=== PATIENT | male | born 1975 | race Caucasian/White ===

== ENCOUNTER 2017-12-07 12:48 | Emergency (ER) | payer SELFPAY ==
[~2017-12-07] VITALS: Ht 167.6 cm; Wt 65.8 kg
[~2017-12-07 12:48] MED LIST: CEPH-507 PO; CEPH500C PO; DOXY100C2 PO; HYDR-3729 PO; IBP800T PO; METH4TAB PO; NAPR-243 PO; ONDAN4ODT PO; TRM50T PO
[2017-12-07 13:31] LABS: BASOPHILS # (AUTO) 0.1 10^3/uL (0.0-0.1); BASOPHILS % (AUTO) 1 % (0-10); EOSINOPHILS # (AUTO) 0.5 10^3/uL (0.0-0.3); EOSINOPHILS % (AUTO) 6 % (0-10); HEMATOCRIT 44 % (40-54); LYMPHOCYTES # (AUTO) 2.7 X 10^3 (1.0-4.0); LYMPHOCYTES % (AUTO) 35 % (12-44); MEAN CORPUSCULAR HEMOGLOBIN 32 PG (25-34); MEAN CORPUSCULAR HGB CONC 34 G/DL (32-36); MEAN CORPUSCULAR VOLUME 93 FL (80-99); MEAN PLATELET VOLUME 9.5 FL (7.4-10.4); MONOCYTES # (AUTO) 0.7 X 10^3 (0.0-1.0); MONOCYTES % (AUTO) 9 % (0-12); NEUTROPHILS # (AUTO) 3.8 X 10^3 (1.8-7.8); NEUTROPHILS % (AUTO) 49 % (42-75); PLATELET COUNT 246 10^3/uL (130-400); RED BLOOD COUNT 4.75 10^6/uL (4.35-5.85); RED CELL DISTRIBUTION WIDTH 13.1 % (10.0-14.5); WHITE BLOOD COUNT 7.7 10^3/uL (4.3-11.0)
[2017-12-07 13:32] LABS: BILIRUBIN,URINE NEGATIVE (NEGATIVE); CLARITY,URINE CLEAR; COLOR,URINE YELLOW; GLUCOSE, URINE (UA) NEGATIVE (NEGATIVE); KETONES,URINE NEGATIVE (NEGATIVE); LEUKOCYTE ESTERASE ,URINE NEGATIVE (NEGATIVE); NITRITE,URINE NEGATIVE (NEGATIVE); PH,URINE 6.5 (5-9); PROTEIN,URINE NEGATIVE (NEGATIVE); UROBILINOGEN,URINE NORMAL (NORMAL)
[2017-12-07 13:39] LABS: BACTERIA,URINE NEGATIVE /HPF
[2017-12-07 13:43] LABS: ALANINE AMINOTRANSFERASE 170 U/L (0-55); ALBUMIN 4.7 GM/DL (3.2-4.5); ALKALINE PHOSPHATASE 108 U/L (40-136); BILIRUBIN,TOTAL 0.5 MG/DL (0.1-1.0); BUN/CREATININE RATIO 18; CALCIUM 9.9 MG/DL (8.5-10.1); CARBON DIOXIDE 24 MMOL/L (21-32); CHLORIDE 107 MMOL/L (98-107); CREATININE SERUM 0.92 MG/DL (0.60-1.30); GFR ESTIMATED > 60; GLUCOSE 99 MG/DL (70-105); MAGNESIUM 2.4 MG/DL (1.8-2.4); SODIUM 138 MMOL/L (135-145); TOTAL PROTEIN 7.6 GM/DL (6.4-8.2)
[2017-12-07 13:50] LABS: AMPHETAMINE SCREEN, URINE NEGATIVE (NEGATIVE); BARBITURATE SCREEN URINE NEGATIVE (NEGATIVE); BENZODIAZEPINES SCREEN URINE NEGATIVE (NEGATIVE); CANNABINOID SCREEN, URINE POSITIVE (NEGATIVE); COCAINE SCREEN URINE NEGATIVE (NEGATIVE); METHADONE STAT NEGATIVE (NEGATIVE); METHAMPHETAMINE SCREEN URINE S NEGATIVE (NEGATIVE); OPIATE SCREEN URINE NEGATIVE (NEGATIVE); OXYCODONE STAT NEGATIVE (NEGATIVE); PROPOXYPHENE STAT NEGATIVE (NEGATIVE); TRICYCLIC ANTIDEPRESSANTS SCRE NEGATIVE (NEGATIVE)
--- NOTE | 2017-12-07 14:00 | Diagnostic Imaging Report ---
CLINICAL INDICATION: Patient having headaches for a few weeks and losing hair. EXAM: Chest x-ray, PA and lateral views. COMPARISON: Chest x-ray dated 03/24/2011. FINDINGS: LUNGS/PLEURA: Stable linear opacity in the right upper lobe which may represent scarring. Likely extrathoracic chest soft tissue shadow overlying the left chest region. Otherwise, the lungs are clear. There is no pneumothorax. There is no pleural effusion. MEDIASTINUM: Unremarkable. PULMONARY VASCULATURE: Unremarkable. HEART: Unremarkable. BONES/EXTRATHORACIC SOFT TISSUE: Unremarkable. IMPRESSION: Stable chest x-ray exam with no interval radiographic evidence of acute cardiopulmonary process. Dictated by: Dictated on workstation # [id number]
--- NOTE | 2017-12-07 14:01 | Diagnostic Imaging Report ---
CLINICAL INDICATION: Patient started having headaches for few weeks and has also been losing his hair for a month. EXAMINATION: Axial CT scan of the brain performed without IV contrast. COMPARISON: None. FINDINGS: There is no evidence of acute cerebral infarct, intracranial hemorrhage, or gross mass effect. The brain parenchymal volume appears appropriate for patient's age. There is normal castellanos-white matter distinction. There is no significant midline shift or herniation. There is no evidence of hydrocephalus. The basal cisterns are unremarkable. The skull, extracranial soft tissue, and orbits are unremarkable. There is mild mucosal thickening involving the frontal sinus, ethmoid sinus, sphenoid sinus, and both maxillary sinuses. Temporal bones show no significant abnormality. IMPRESSION: 1: Mild diffuse paranasal sinus disease. Otherwise unremarkable CT scan of the brain. Dictated by: Dictated on workstation # [id number]
[2017-12-07 14:03] LABS: TSH (THYROID ANALYZER) 0.79 UIU/ML (0.35-4.94)
--- NOTE | 2017-12-07 16:24 | ED Chest Pain ---
General Chief Complaint: Neurological Problems Stated Complaint: CP,SOB,LEFT SIDE OF FACE NUMB,VIDES,HAIR LOSS Nursing Triage Note: PATIENT STATES THAT HE STARTED HAVING A HEADACHE A FEW WEEKS. HE HAS ALSO BEEN LOOSING HIS HAIR FOR A MONTH AND IS SCHEUDLED FOR TESTING. TODAY HIS HEADACHE IS UNBEARABLE AND HE IS HAVING NUMBNESS IN HIS FACE AND INTERMITTENT PAIN IN HIS CHEST. HEAD IS 10/10 PAIN AND FEELS LIKE HE WAS HIT IN THE HEAD WITH A BASEBALL BAT. CHEST IS 5/10 WHEN PRESENT. HE ALSO COMPLAINS OF SENSITIVITY TO LIGHT AND INTERMITTENT LIGHTHEADEDNESS. Nursing Sepsis Screen: No Definite Risk Source: patient, old records Exam Limitations: no limitations History of Present Illness Date Seen by Provider: Dec 07, 2017 Time Seen by Provider: 13:15 Initial Comments This 42-year-old man presents to the emergency room with multiple complaints including chest pain and palpitations that started around 10:00 this morning, headache for 2 weeks, hair falling out for the past few months, facial numbness and mild left-sided extremity numbness that started mid morning. Chest pain is worse with inspiration and movement. Patient states he had a "heart attack" 7 years ago for which he was seen at the emergency room at [facility]. He reports he was not admitted and no specific cardiac procedures were performed. Patient denies any alcohol use for several years. He does smoke cigarettes and marijuana. He has a history of methamphetamine abuse as well and states his last use was a few months ago. He has a remote history of cocaine use. Patient states his only other health problem is Crohn's disease for which he is supposed to take maintenance medications but has not been recently. Patient has multiple social stressors including unemployment and homelessness. Allergies and Home Medications Allergies Coded Allergies: No Known Drug Allergies (Unverified , 04/08/15) Home Medications Amoxicillin 500 Mg Tablet, 1,000 MG PO TID Prescribed by: CASSIE KEITH on 12/07/17 1630 Cephalexin 500 Mg Capsule, 500 MG PO BID Prescribed by: MARGARITA SCOTT on 04/08/15 1651 Hydrocodone/Acetaminophen 1 Each Tablet, 1 EACH PO Q6H PRN for PAIN Prescribed by: MARGARITA SCOTT on 04/08/15 1651 Patient Home Medication List Home Medication List Reviewed: Yes Review of Systems Constitutional: no symptoms reported EENTM: See HPI Respiratory: See HPI Cardiovascular: See HPI Gastrointestinal: No Symptoms Reported Genitourinary: No Symptoms Reported Musculoskeletal: no symptoms reported Skin: see HPI Psychiatric/Neurological: See HPI Endocrine: No Symptoms Reported Hematologic/Lymphatic: No Symptoms Reported Past Pkhtqpl-Ajkpin-Aenriv Hx Patient Social History Alcohol Use: Denies Use Recreational Drug Use: Yes (MARIJUANA) Smoking Status: Current Everyday Smoker Type Used: Cigarettes 2nd Hand Smoke Exposure: Yes Recent Foreign Travel: No Contact w/Someone Who Travel: No Recent Infectious Disease Expo: No Immunizations Up To Date Tetanus Booster (TDap): Less than 5yrs Seasonal Allergies Seasonal Allergies: No Past Medical History Surgeries: Yes (KIDNEY STONE) Abdominal Respiratory: No Cardiac: Yes (POSSIBLE [place]) Heart Attack (self stated history but not confirmed) Neurological: No Genitourinary: Yes Kidney Stones Gastrointestinal: Yes Crohns Disease, Irritable Bowel Musculoskeletal: No Endocrine: No HEENT: No Cancer: No Psychosocial: Yes (polysubstance abuse) Anxiety Integumentary: No Blood Disorders: No Adverse Reaction/Blood Tranf: No Physical Exam Vital Signs Vital Signs - First Documented 12/07/17 12:56 Temp 97.0 Pulse 87 Resp 18 B/P (MAP) 128/92 (104) Pulse Ox 99 O2 Delivery Room Air Capillary Refill : Less Than 3 Seconds General Appearance: No Apparent Distress, WD/WN HEENT: PERRL/EOMI, Normal ENT Inspection, Other (patches of baldness on the scalp with short hair extending from the roots visible.) Neck: Normal Inspection Respiratory: Chest Non Tender, Lungs Clear, Normal Breath Sounds, No Accessory Muscle Use, No Respiratory Distress Cardiovascular: Regular Rate, Rhythm, No Edema, No Murmur Gastrointestinal: Normal Bowel Sounds, Non Tender, Soft Extremity: Normal Capillary Refill, Normal Inspection, Non Tender, No Calf Tenderness Neurologic/Psychiatric: Alert, Oriented x3, No Motor/Sensory Deficits, Normal Mood/Affect, scientist/engineer II-XII Norm as Tested, Other (normal heel to domínguez, finger to nose, and gait) Skin: Normal Color, Warm/Dry Procedures/Interventions Suture Size: 4-0 Progress/Results/Core Measures Lab Results Laboratory Tests Test 12/07/17 13:03 12/07/17 13:05 12/07/17 13:27 12/07/17 15:18 Range/Units Erythrocyte Sedimentation Rate 1 0-15 MM/HR D-Dimer < 0.27 0.00-0.49 UG/ML C-Reactive Protein High Sensitivity 0.11 0.00-0.50 MG/DL White Blood Count 7.7 4.3-11.0 10^3/uL Red Blood Count 4.75 4.35-5.85 10^6/uL Hemoglobin 15.0 13.3-17.7 G/DL Hematocrit 44 40-54 % Mean Corpuscular Volume 93 80-99 FL Mean Corpuscular Hemoglobin 32 25-34 PG Mean Corpuscular Hemoglobin Concent 34 32-36 G/DL Red Cell Distribution Width 13.1 10.0-14.5 % Platelet Count 246 130-400 10^3/uL Mean Platelet Volume 9.5 7.4-10.4 FL Neutrophils (%) (Auto) 49 42-75 % Lymphocytes (%) (Auto) 35 12-44 % Monocytes (%) (Auto) 9 0-12 % Eosinophils (%) (Auto) 6 0-10 % Basophils (%) (Auto) 1 0-10 % Neutrophils # (Auto) 3.8 1.8-7.8 X 10^3 Lymphocytes # (Auto) 2.7 1.0-4.0 X 10^3 Monocytes # (Auto) 0.7 0.0-1.0 X 10^3 Eosinophils # (Auto) 0.5 H 0.0-0.3 10^3/uL Basophils # (Auto) 0.1 0.0-0.1 10^3/uL Sodium Level 138 135-145 MMOL/L Potassium Level 4.0 3.6-5.0 MMOL/L Chloride Level 107 98-107 MMOL/L Carbon Dioxide Level 24 21-32 MMOL/L Anion Gap 7 5-14 MMOL/L Blood Urea Nitrogen 17 7-18 MG/DL Creatinine 0.92 0.60-1.30 MG/DL Estimat Glomerular Filtration Rate > 60 BUN/Creatinine Ratio 18 Glucose Level 99 70-105 MG/DL Calcium Level 9.9 8.5-10.1 MG/DL Magnesium Level 2.4 1.8-2.4 MG/DL Total Bilirubin 0.5 0.1-1.0 MG/DL Aspartate Amino Transf (AST/SGOT) 44 H 5-34 U/L Alanine Aminotransferase (ALT/SGPT) 170 H 0-55 U/L Alkaline Phosphatase 108 40-136 U/L Troponin I < 0.30 < 0.30 <0.30 NG/ML Total Protein 7.6 6.4-8.2 GM/DL Albumin 4.7 H 3.2-4.5 GM/DL TSH [facility] Testing 0.79 0.35-4.94 UIU/ML Serum Alcohol < 10 <10 MG/DL Urine Color YELLOW Urine Clarity CLEAR Urine pH 6.5 5-9 Urine Specific [place] 1.015 L 1.016-1.022 Urine Protein NEGATIVE NEGATIVE Urine Glucose (UA) NEGATIVE NEGATIVE Urine Ketones NEGATIVE NEGATIVE Urine Nitrite NEGATIVE NEGATIVE Urine Bilirubin NEGATIVE NEGATIVE Urine Urobilinogen NORMAL NORMAL MG/DL Urine Leukocyte Esterase NEGATIVE NEGATIVE Urine RBC (Auto) NEGATIVE NEGATIVE Urine RBC NONE /HPF Urine WBC NONE /HPF Urine Crystals NONE /LPF Urine Bacteria NEGATIVE /HPF Urine Casts NONE /LPF Urine Mucus SMALL H /LPF Urine Culture Indicated NO Urine Opiates Screen NEGATIVE NEGATIVE Urine Oxycodone Screen NEGATIVE NEGATIVE Urine Methadone Screen NEGATIVE NEGATIVE Urine Propoxyphene Screen NEGATIVE NEGATIVE Urine Barbiturates Screen NEGATIVE NEGATIVE Ur Tricyclic Antidepressants Screen NEGATIVE NEGATIVE Urine Phencyclidine Screen NEGATIVE NEGATIVE Urine Amphetamines Screen NEGATIVE NEGATIVE Urine Methamphetamines Screen NEGATIVE NEGATIVE Urine Benzodiazepines Screen NEGATIVE NEGATIVE Urine Cocaine Screen NEGATIVE NEGATIVE Urine Cannabinoids Screen POSITIVE H NEGATIVE My Orders Orders - CASSIE RUSH MD Alcohol (12/07/17 13:26) Cbc With Automated Diff (12/07/17 13:26) Comprehensive Metabolic Panel (12/07/17 13:26) Drug Screen Stat (Urine) (12/07/17 13:26) Magnesium (12/07/17 13:26) Thyroid Analyzer (12/07/17 13:26) Troponin I (12/07/17 13:26) Ua Culture If Indicated (12/07/17 13:26) Saline Lock/Iv-Start (12/07/17 13:26) Ekg Tracing (12/07/17 13:26) Monitor-Rhythm Ecg Trace Only (12/07/17 13:26) Chest Pa/Lat (2 View) (12/07/17 13:26) Ct Head Wo (12/07/17 13:44) Fibrin Degradation Products (12/07/17 14:48) Hs C Reactive Protein (12/07/17 14:49) Erythrocyte Sedimentation Rate (12/07/17 14:49) Troponin I (12/07/17 14:51) Ketorolac Injection (Toradol Injection) (12/07/17 16:30) Medications Given in ED Current Medications Medications Dose Ordered Sig/Debra Route Start Time Stop Time Status Last Admin Dose Admin Ketorolac Tromethamine 15 mg ONCE ONCE IVP 12/07/17 16:30 12/07/17 16:31 DC 12/07/17 16:23 15 MG Vital Signs/I&O 12/07/17 12/07/17 12:56 16:36 Temp 97.0 97.0 Pulse 87 87 Resp 18 18 B/P (MAP) 128/92 (104) 128/92 (104) Pulse Ox 99 99 O2 Delivery Room Air Blood Pressure Mean: 104 Progress Note : Time: 14:45 Progress Note Numbness has resolved. Initial workup was unremarkable. Patient is still having some pain with inspiration. Further evaluation is being pursued with a repeat troponin and a d-dimer. Case was reviewed with Dr. Lang who offers to see the patient in his clinic tomorrow. Pain appears to be atypical in nature but a repeat troponin is being performed as a precaution. CT of the head demonstrated sinusitis but was otherwise unremarkable. Initial ECG Impression Date: Dec 07, 2017 Initial ECG Impression Time: 13:51 Initial ECG Rate: 67 Initial ECG Rhythm: Normal Sinus Initial ECG Intervals: Normal Comment Normal sinus rhythm with very subtle ST elevation diffusely suggestive of early repolarization pattern associated with young age. No abnormal intervals or axis deviation. Diagonstic Imaging: Xray Plain Films/CT/US/NM/MRI: chest Comments Chest x-ray reviewed by me and report reviewed. See report below: NAME: ARTIE JONAS [facility] REC#: [id number] PT STATUS: REG ER : 1975 PHYSICIAN: CASSIE RUSH MD ADMIT DATE: 12/07/17/ER Draft Date of Exam:12/07/17 CHEST PA/LAT (2 VIEW) CLINICAL INDICATION: Patient having headaches for a few weeks and losing hair. EXAM: Chest x-ray, PA and lateral views. COMPARISON: Chest x-ray dated 03/24/2011. FINDINGS: LUNGS/PLEURA: Stable linear opacity in the right upper lobe which may represent scarring. Likely extrathoracic chest soft tissue shadow overlying the left chest region. Otherwise, the lungs are clear. There is no pneumothorax. There is no pleural effusion. MEDIASTINUM: Unremarkable. PULMONARY VASCULATURE: Unremarkable. HEART: Unremarkable. BONES/EXTRATHORACIC SOFT TISSUE: Unremarkable. IMPRESSION: Stable chest x-ray exam with no interval radiographic evidence of acute cardiopulmonary process. Dictated on workstation # [id number] Dict: 12/07/17 1357 Trans: 12/07/17 1400 [id number] Interpreted by: JAIME YADAV MD Diagonstic Imaging: CT Plain Films/CT/US/NM/MRI: head Comments CT head viewed by me and report reviewed. See report below: NAME: ARTIE JONAS [facility] REC#: [id number] PT STATUS: REG ER : 1975 PHYSICIAN: CASSIE RUSH MD ADMIT DATE: 12/07/17/ER Draft Date of Exam:12/07/17 CT HEAD WO CLINICAL INDICATION: Patient started having headaches for few weeks and has also been losing his hair for a month. EXAMINATION: Axial CT scan of the brain performed without IV contrast. COMPARISON: None. FINDINGS: There is no evidence of acute cerebral infarct, intracranial hemorrhage, or gross mass effect. The brain parenchymal volume appears appropriate for patient's age. There is normal castellanos-white matter distinction. There is no significant midline shift or herniation. There is no evidence of hydrocephalus. The basal cisterns are unremarkable. The skull, extracranial soft tissue, and orbits are unremarkable. There is mild mucosal thickening involving the frontal sinus, ethmoid sinus, sphenoid sinus, and both maxillary sinuses. Temporal bones show no significant abnormality. IMPRESSION: 1: Mild diffuse paranasal sinus disease. Otherwise unremarkable CT scan of the brain. Dictated on workstation # [id number] Dict: 12/07/17 1353 Trans: 12/07/[address] [facility] [id number] Interpreted by: JAIME YADAV MD Departure Impression Primary Impression: Atypical chest pain Additional Impressions: Acute headache Qualified Codes: R51 - Headache Left sided numbness Sinusitis Qualified Codes: J01.40 - Acute pansinusitis, unspecified Disposition: 01 HOME, SELF-CARE Condition: Improved Departure-Patient Inst. Decision time for Depature: 16:10 Referrals: CRISTI LANG MD FACP FAC CCDS NO,LOCAL PHYSICIAN (PCP) Primary Care Physician Patient Instructions: Chest Pain That Is Not Caused by the Heart (DC), Sinusitis in Adults Add. Discharge Instructions: Complete your antibiotic as prescribed. Follow-up with your primary care provider as soon as possible. Contact Dr. Lang's office to schedule an appointment. He can see you in the office tomorrow. Work toward quitting smoking and do not use any other substances such as marijuana, methamphetamines , or alcohol as they may worsen your symptoms. Return to care if symptoms worsen. For pain take ibuprofen up to 600 mg every 6 hours as needed. You may add Tylenol (acetaminophen) up to 1000 mg every 6 hours as needed for additional pain relief. All discharge instructions reviewed with patient and/or family. Voiced understanding. Scripts Amoxicillin (Amoxicillin) 500 Mg Tablet 1000 MG PO TID, #60 TAB Prov: CASSIE RUSH MD 12/07/17 CASSIE RUSH MD Dec 07, 2017 16:24
[2017-12-07] MEDS ORDERED: AMOX500T2 PO (16:30)
[2017-12-07] MEDS ORDERED: KETOROLAC 30 MG/ML VIAL IVP ONE (16:30)
[2017-12-07 16:36] VITALS: BP 128/92
== END 2017-12-07 16:38 | disposition home or self-care (01) ==
LOC: EDUNIT# 12:48 → ER 12:50
DX: R07.89 Other chest pain (principal); R51 Headache; R20.0 Anesthesia of skin; J32.9 Chronic sinusitis, unspecified; F41.9 Anxiety disorder, unspecified; I25.2 Old myocardial infarction; F12.90 Cannabis use, unspecified, uncomplicated; F17.210 Nicotine dependence, cigarettes, uncomplicated; Z87.442 Personal history of urinary calculi; Z87.19 Personal history of other diseases of the digestive system
CPT/HCPCS: 36415; 70450; 71046; 80053; 80306; 80320; 81000; 83735; 84443; 84484; 85025; 85379; 85652; 86141; 93005; 93041; 96374

== ENCOUNTER 2018-01-17 14:30 | Emergency (ER) | payer SELFPAY ==
[~2018-01-17] VITALS: Ht 167.6 cm; Wt 63.5 kg
[~2018-01-17 14:30] MED LIST changes: +AMOX500T2 PO
[2018-01-17] MEDS ORDERED: LIDOCAINE 1% INJ 50 ML (XYLOCAINE) VIAL IJ STA (14:57)
[2018-01-17] MEDS ORDERED: TETANUS,DIPTH,PERTUSS P/F (BOOSTRIX) 0.5 ML VIAL IM STA (14:57)
--- NOTE | 2018-01-17 15:02 | ED Integumentary General ---
General Chief Complaint: Skin/Wound Problems Stated Complaint: L ELBOW REDNESS Nursing Triage Note: PT CO OF L ELBOW PAIN, PT HAS REDNESS, SWELLING AND PAIN AT SITE, PT STATES STARTED A COUPLE DAYS AGO. PT VERY RESTLESS IN ROOM History of Present Illness Date Seen by Provider: January 17, 2018 Time Seen by Provider: 14:50 Initial Comments 42-year-old male reports for left elbow pain. He states yesterday he began to have pain and drainage from the elbow, was concerned that there was possibly a spider bite. He attempted to open the area and drain it, but was too painful He denies history of MRSA. Timing/Duration: yesterday Severity: moderate Location: extremities Possible Cause: no cause identified Associated Symptoms: denies symptoms Allergies and Home Medications Allergies Coded Allergies: No Known Drug Allergies (Unverified , 04/08/15) Home Medications Amoxicillin 500 Mg Tablet, 1,000 MG PO TID Prescribed by: CASSIE KEITH on 12/07/17 1630 Cephalexin 500 Mg Capsule, 500 MG PO BID Prescribed by: MARGARITA SCOTT on 04/08/15 1651 Doxycycline Hyclate 100 Mg Tablet, 100 MG PO BID Prescribed by: DILLAN SHAFFER on 01/17/18 1534 Hydrocodone/Acetaminophen 1 Each Tablet, 1 EACH PO Q6H PRN for PAIN Prescribed by: MARGARITA SCOTT on 04/08/15 1651 Mupirocin Calcium 15 Gm Cream..g., 15 GM TP TID Prescribed by: DILLAN SHAFFER on 01/17/18 1534 Patient Home Medication List Home Medication List Reviewed: Yes Constitutional: no symptoms reported, see HPI Skin: see HPI, change in color (erythema left elbow) All Other Systems Reviewed Negative Unless Noted: Yes Past Xphzncg-Xesakj-Uplxzs Hx Past Med/Social Hx: Reviewed Nursing Past Med/Soc Hx Patient Social History Alcohol Use: Rarely Uses Recreational Drug Use: Yes (POT) Smoking Status: Never a Smoker Type Used: Cigarettes 2nd Hand Smoke Exposure: Yes Recent Foreign Travel: No Contact w/Someone Who Travel: No Recent Infectious Disease Expo: No Recent Hopitalizations: No Physical Abuse: No Sexual Abuse: No Immunizations Up To Date Tetanus Booster (TDap): More than 5yrs Seasonal Allergies Seasonal Allergies: No Past Medical History Surgeries: Yes (KIDNEY STONE) Abdominal Respiratory: No Cardiac: Yes (POSSIBLE [place]) Heart Attack Neurological: No Genitourinary: Yes Kidney Stones Gastrointestinal: Yes Crohns Disease, Irritable Bowel Musculoskeletal: No Endocrine: No HEENT: No Cancer: No Psychosocial: Yes (polysubstance abuse) Anxiety Nursing Suicide Risk Score: 0 Integumentary: No Blood Disorders: No Adverse Reaction/Blood Tranf: No Physical Exam Vital Signs Vital Signs - First Documented 01/17/18 14:40 Temp 98.2 Pulse 104 Resp 18 B/P (MAP) 124/89 (101) Pulse Ox 97 Capillary Refill : Less Than 3 Seconds General Appearance: WD/WN, no apparent distress HEENT: PERRL/EOMI, normal ENT inspection, TMs normal, pharynx normal Cardiovascular: normal peripheral pulses, regular rate, rhythm Respiratory: chest non-tender, lungs clear, normal breath sounds Extremities: normal range of motion, normal capillary refill, other ( left elbow with marked erythema and warmth, full range of motion to the elbow with no pain. Tender to palpation. Central area of fluctuation noted over the olecranon.) Skin: normal color, warm/dry Lymphatic: no adenopathy (left epitrochlear nodes nonpalpable) Procedures/Interventions I&D : Site: left elbow Blade Size: 11 I & D Procedure: betadine prep Progress Left elbow: Skin was prepped with Betadine, 3 ML's of 1% lidocaine were used infiltrate the skin, after satisfactory local anesthesia was obtained, 11 blade used to create small incision, trace amount of purulent drainage was expressed, culture was obtained, wound irrigated with 500 ML's of sterile saline. Her blood in about ointment and Bulky sterile dressing was applied. Patient tolerated procedure. Suture Size: 4-0 Progress/Results/Core Measures Results/Orders My Orders Orders - DILLAN SHAFFER Dipht,Pertuss(Acell),Tet Adult (Boostrix (01/17/18 14:57) Lidocaine 1% Inj 50 Ml (Xylocaine 1% Inj (01/17/18 14:57) Lidocaine 1% Inj 20 Ml (Xylocaine 1% Inj (01/17/18 15:07) Wound Culture (01/17/18 15:58) Medications Given in ED Current Medications Medications Dose Ordered Sig/Debra Route Start Time Stop Time Status Last Admin Dose Admin Lidocaine HCl 20 ml STK-MED ONCE .ROUTE 01/17/18 15:07 01/17/18 15:12 DC 01/17/18 15:30 20 ML Vital Signs/I&O 01/17/18 01/17/18 14:40 15:39 Temp 98.2 98.2 Pulse 104 104 Resp 18 18 B/P (MAP) 124/89 (101) 124/89 (101) Pulse Ox 97 97 Blood Pressure Mean: 101 Progress Progress Note : Time: 14:50 Progress Note Initial evaluation completed, recommended a tetanus shot and then I&D of the left elbow. Patient agreed with this treatment, cultures will be obtained. Departure Impression Primary Impression: Cellulitis of left elbow Additional Impression: Abscess, elbow Disposition: 01 HOME, SELF-CARE Condition: Improved Departure-Patient Inst. Decision time for Depature: 15:30 Referrals: NO,LOCAL PHYSICIAN (PCP/Family) Primary Care Physician Patient Instructions: Abscess Incision and Drainage (DC), Cellulitis (Skin Infection), Adult (DC) Add. Discharge Instructions: Take antibiotic as prescribed. Clean left elbow with peroxide three times a day and apply antibiotic ointment as prescribed. You may use ice on the elbow 20 minutes every 2 hours while awake. Alternate between Tylenol 650 mg and ibuprofen 600 mg every 4 hours for pain. Return to emergency department as needed. All discharge instructions reviewed with patient and/or family. Voiced understanding. Scripts Mupirocin Calcium (Bactroban) 15 Gm Cream..g. 15 GM TP TID, #1 TUBE 0 Refills Prov: DILLAN SHAFFER 01/17/18 Doxycycline Hyclate (Doxycycline Hyclate) 100 Mg Tablet 100 MG PO BID, #20 TAB 0 Refills Prov: DILLAN SHAFFER 01/17/18 DILLAN SHAFFER January 17, 2018 15:02
[2018-01-17] MEDS ORDERED: LIDOCAINE 1% INJ 20 ML 20 ML VIAL ONE (15:07)
[2018-01-17] MEDS ORDERED: DOXY100T2 PO (15:34)
[2018-01-17] MEDS ORDERED: MUPI15CR TP (15:34)
[2018-01-17 15:39] VITALS: BP 124/89
== END 2018-01-17 15:40 | disposition home or self-care (01) ==
LOC: EDUNIT# 14:30 → ER 14:31
DX: L03.114 Cellulitis of left upper limb (principal); L02.414 Cutaneous abscess of left upper limb; I25.2 Old myocardial infarction; K50.00 Crohn's disease of small intestine without complications; F12.90 Cannabis use, unspecified, uncomplicated; K58.9 Irritable bowel syndrome, unspecified; Z87.442 Personal history of urinary calculi; Z23 Encounter for immunization
CPT/HCPCS: 87070; 87077; 87186; 87205; 90471; 90715; 99282

== ENCOUNTER 2018-04-28 19:15 | Emergency (ER) | payer SELFPAY ==
[~2018-04-28] VITALS: Ht 167.6 cm; Wt 63.5 kg
[~2018-04-28 19:15] MED LIST changes: +DOXY100T2 PO; +MUPI15CR TP
--- NOTE | 2018-04-28 19:54 | ED General ---
General Chief Complaint: Bite-Animal/Human/Insect Stated Complaint: BITE ON L LEG,POSS INFECTED Nursing Triage Note: BITE TO LEFT GROIN AREA 3-4 DAYS AGO. NAUSEA, VOMITING, FATIGUE, AND OCCASIONAL CHEST PAIN WITH SOB. Nursing Sepsis Screen: No Definite Risk Source of Information: Patient Exam Limitations: No Limitations History of Present Illness Date Seen by Provider: Apr 28, 2018 Time Seen by Provider: 19:51 Initial Comments To ER with reports of a lesion to the proximal anterior left thigh first noticed about 3 days ago. He awakened with this and is unsure what may have caused it, perhaps a brown recluse. He's had nausea, vomiting, generalized malaise, intermittent chest pain and shortness of breath since then. However, the intervention shortness of breath and chest pain are not new symptoms, he's had these before and is scheduled to see cardiology. He states he's been able to squeeze some pus from this lesion. No fevers or chills. Timing/Duration: 1-2 Days Severity: Moderate Associated Systoms: Chest Pain; No Fever/Chills; Malaise, Nausea/Vomiting Allergies and Home Medications Allergies Coded Allergies: No Known Drug Allergies (Unverified , 04/08/15) Home Medications Amoxicillin 500 Mg Tablet, 1,000 MG PO TID Prescribed by: CASSIE KEITH on 12/07/17 1630 Cephalexin 500 Mg Capsule, 500 MG PO BID Prescribed by: MARGARITA SCOTT on 04/08/15 1651 Doxycycline Hyclate 100 Mg Tablet, 100 MG PO BID Prescribed by: DILLAN SHAFFER on 01/17/18 1534 Hydrocodone/Acetaminophen 1 Each Tablet, 1 EACH PO Q6H PRN for PAIN Prescribed by: MARGARITA SCOTT on 04/08/15 1651 Mupirocin Calcium 15 Gm Cream..g., 15 GM TP TID Prescribed by: DILLAN SHAFFER on 01/17/18 1534 Patient Home Medication List Home Medication List Reviewed: Yes Review of Systems Review of Systems Constitutional: see HPI; No chills, No fever; malaise EENTM: see HPI Respiratory: no symptoms reported Cardiovascular: no symptoms reported Genitourinary: no symptoms reported Musculoskeletal: no symptoms reported Skin: see HPI, lesions Psychiatric/Neurological: No Symptoms Reported Hematologic/Lymphatic: No Symptoms Reported Immunological/Allergic: no symptoms reported Past Uyfmlii-Twhwzv-Lurujy Hx Patient Social History Type Used: Cigarettes 2nd Hand Smoke Exposure: Yes Recent Foreign Travel: No Contact w/Someone Who Travel: No Recent Infectious Disease Expo: No Recent Hopitalizations: No Immunizations Up To Date Tetanus Booster (TDap): More than 5yrs Seasonal Allergies Seasonal Allergies: No Past Medical History Surgeries: Yes (KIDNEY STONE) Abdominal Respiratory: No Cardiac: Yes (POSSIBLE [place]) Heart Attack Neurological: No Genitourinary: Yes Kidney Stones Gastrointestinal: Yes Crohns Disease, Irritable Bowel Musculoskeletal: No Endocrine: No HEENT: No Cancer: No Psychosocial: Yes (polysubstance abuse) Anxiety Integumentary: No Blood Disorders: No Adverse Reaction/Blood Tranf: No Physical Exam Vital Signs Vital Signs - First Documented 04/28/18 19:35 Temp 98.2 Pulse 112 Resp 14 B/P (MAP) 133/117 (122) Pulse Ox 98 Capillary Refill : Less Than 3 Seconds Height, Weight, BMI Height: 5'6.00" Weight: 140lbs. 0oz. [id number]; BMI Method:Stated General Appearance: No Apparent Distress, WD/WN, Other (multiple sores on dorsum of hands and lower extremities) Eyes: Bilateral Eye Normal Inspection, Bilateral Eye PERRL, Bilateral Eye EOMI HEENT: PERRL/EOMI, TMs Normal Neck: Full Range of Motion, Normal Inspection Respiratory: No Accessory Muscle Use, No Respiratory Distress Cardiovascular: Regular Rate, Rhythm, Normal Peripheral Pulses Gastrointestinal: Normal Bowel Sounds, Non Tender, Soft Extremity: Normal Capillary Refill, Normal Inspection, Other (there is a half dollar-sized area to the left anterior proximal thigh that is erythematous with very slight induration. No fluctuance to suggest a drainable abscess. The center of this has about a 2-3 mm purplish brown hard eschar in the center. No lymphangitis.) Neurologic/Psychiatric: Alert, Oriented x3 Skin: Normal Color, Warm/Dry Procedures/Interventions Suture Size: 4-0 Progress/Results/Core Measures Suspected Sepsis Recent Fever Within 48 Hours: No Infection Criteria Present: None New/Unexplained Altered Menta: No Sepsis Screen: No Definite Risk SIRS Temperature:98.2 Pulse: 112 Respiratory Rate: 14 Laboratory Tests 04/28/18 20:08: White Blood Count 7.1 Blood Pressure 133 /117 Mean: 122 Laboratory Tests 04/28/18 20:08: Creatinine 0.96, Platelet Count 270, Total Bilirubin 0.3 Results/Orders Lab Results Laboratory Tests Test 04/28/18 20:08 04/28/18 20:09 Range/Units White Blood Count 7.1 4.3-11.0 10^3/uL Red Blood Count 4.58 4.35-5.85 10^6/uL Hemoglobin 14.6 13.3-17.7 G/DL Hematocrit 41 40-54 % Mean Corpuscular Volume 90 80-99 FL Mean Corpuscular Hemoglobin 32 25-34 PG Mean Corpuscular Hemoglobin Concent 35 32-36 G/DL Red Cell Distribution Width 12.6 10.0-14.5 % Platelet Count 270 130-400 10^3/uL Mean Platelet Volume 9.4 7.4-10.4 FL Neutrophils (%) (Auto) 56 42-75 % Lymphocytes (%) (Auto) 31 12-44 % Monocytes (%) (Auto) 10 0-12 % Eosinophils (%) (Auto) 2 0-10 % Basophils (%) (Auto) 0 0-10 % Neutrophils # (Auto) 4.0 1.8-7.8 X 10^3 Lymphocytes # (Auto) 2.2 1.0-4.0 X 10^3 Monocytes # (Auto) 0.7 0.0-1.0 X 10^3 Eosinophils # (Auto) 0.1 0.0-0.3 10^3/uL Basophils # (Auto) 0.0 0.0-0.1 10^3/uL Sodium Level 141 135-145 MMOL/L Potassium Level 3.2 L 3.6-5.0 MMOL/L Chloride Level 102 98-107 MMOL/L Carbon Dioxide Level 27 21-32 MMOL/L Anion Gap 12 5-14 MMOL/L Blood Urea Nitrogen 11 7-18 MG/DL Creatinine 0.96 0.60-1.30 MG/DL Estimat Glomerular Filtration Rate > 60 BUN/Creatinine Ratio 11 Glucose Level 87 70-105 MG/DL Calcium Level 10.0 8.5-10.1 MG/DL Corrected Calcium 9.7 8.5-10.1 MG/DL Total Bilirubin 0.3 0.1-1.0 MG/DL Aspartate Amino Transf (AST/SGOT) 15 5-34 U/L Alanine Aminotransferase (ALT/SGPT) 36 0-55 U/L Alkaline Phosphatase 98 40-136 U/L Troponin I < 0.30 <0.30 NG/ML B-Type Natriuretic Peptide 13.9 <100.0 PG/ML Total Protein 7.2 6.4-8.2 GM/DL Albumin 4.4 3.2-4.5 GM/DL Urine Color YELLOW Urine Clarity CLEAR Urine pH 7 5-9 Urine Specific [place] 1.015 L 1.016-1.022 Urine Protein NEGATIVE NEGATIVE Urine Glucose (UA) NEGATIVE NEGATIVE Urine Ketones NEGATIVE NEGATIVE Urine Nitrite NEGATIVE NEGATIVE Urine Bilirubin NEGATIVE NEGATIVE Urine Urobilinogen 1 NORMAL MG/DL Urine Leukocyte Esterase 1+ H NEGATIVE Urine RBC (Auto) NEGATIVE NEGATIVE Urine RBC NONE /HPF Urine WBC 0-2 /HPF Urine Crystals PRESENT H /LPF Urine Amorphous Sediment MOD NAOMI URATES H /LPF Urine Bacteria NONE /HPF Urine Casts NONE /LPF Urine Mucus NEGATIVE /LPF Urine Culture Indicated NO Urine Opiates Screen NEGATIVE NEGATIVE Urine Oxycodone Screen NEGATIVE NEGATIVE Urine Methadone Screen NEGATIVE NEGATIVE Urine Propoxyphene Screen NEGATIVE NEGATIVE Urine Barbiturates Screen NEGATIVE NEGATIVE Ur Tricyclic Antidepressants Screen NEGATIVE NEGATIVE Urine Phencyclidine Screen NEGATIVE NEGATIVE Urine Amphetamines Screen POSITIVE H NEGATIVE Urine Methamphetamines Screen NEGATIVE NEGATIVE Urine Benzodiazepines Screen NEGATIVE NEGATIVE Urine Cocaine Screen NEGATIVE NEGATIVE Urine Cannabinoids Screen POSITIVE H NEGATIVE My Orders Orders - MARGARITA SCOTT APRN Cbc With Automated Diff (04/28/18 19:44) Comprehensive Metabolic Panel (04/28/18 19:44) BNP (04/28/18 19:44) Troponin I (04/28/18 19:44) Ekg Tracing (04/28/18 19:44) Drug Screen Stat (Urine) (04/28/18 20:02) Ua Culture If Indicated (04/28/18 20:02) Potassium Chloride (Tablet) (K Dur Table (04/28/18 21:00) Vital Signs/I&O 04/28/18 19:35 Temp 98.2 Pulse 112 Resp 14 B/P (MAP) 133/117 (122) Pulse Ox 98 Capillary Refill : Less Than 3 Seconds Blood Pressure Mean: 122 Departure Impression Primary Impression: Wound of skin Additional Impression: Nausea Disposition: 01 HOME, SELF-CARE Condition: Stable Departure-Patient Inst. Decision time for Depature: 19:54 Referrals: NO,LOCAL PHYSICIAN (PCP/Family) Primary Care Physician Patient Instructions: Wound Care Add. Discharge Instructions: 1. Follow-up with your doctor next week 2. Potassium supplements as directed 3. Antibiotic as directed. All discharge instructions reviewed with patient and/ or family. Voiced understanding. Scripts Potassium Chloride (Potassium Chloride) 20 Meq Tablet.er 40 MEQ PO DAILY, #4 TAB Prov: MARGARITA SCOTT APRN 04/28/18 Cephalexin (Keflex) 500 Mg Capsule 500 MG PO TID, #21 CAP Prov: MARGARITA SCOTT APRN 04/28/18 MARGARITA SCOTT APRN Apr 28, 2018 19:54
[2018-04-28 20:17] LABS: BASOPHILS % (AUTO) 0 % (0-10); EOSINOPHILS # (AUTO) 0.1 10^3/uL (0.0-0.3); EOSINOPHILS % (AUTO) 2 % (0-10); HEMATOCRIT 41 % (40-54); HEMOGLOBIN 14.6 G/DL (13.3-17.7); LYMPHOCYTES # (AUTO) 2.2 X 10^3 (1.0-4.0); LYMPHOCYTES % (AUTO) 31 % (12-44); MEAN CORPUSCULAR HEMOGLOBIN 32 PG (25-34); MEAN CORPUSCULAR HGB CONC 35 G/DL (32-36); MEAN CORPUSCULAR VOLUME 90 FL (80-99); MEAN PLATELET VOLUME 9.4 FL (7.4-10.4); MONOCYTES # (AUTO) 0.7 X 10^3 (0.0-1.0); MONOCYTES % (AUTO) 10 % (0-12); NEUTROPHILS % (AUTO) 56 % (42-75); PLATELET COUNT 270 10^3/uL (130-400); RED BLOOD COUNT 4.58 10^6/uL (4.35-5.85); RED CELL DISTRIBUTION WIDTH 12.6 % (10.0-14.5); WHITE BLOOD COUNT 7.1 10^3/uL (4.3-11.0)
[2018-04-28 20:26] LABS: BILIRUBIN,URINE NEGATIVE (NEGATIVE); CLARITY,URINE CLEAR; COLOR,URINE YELLOW; GLUCOSE, URINE (UA) NEGATIVE (NEGATIVE); KETONES,URINE NEGATIVE (NEGATIVE); LEUKOCYTE ESTERASE ,URINE 1+ (NEGATIVE); NITRITE,URINE NEGATIVE (NEGATIVE); PH,URINE 7 (5-9); PROTEIN,URINE NEGATIVE (NEGATIVE); UROBILINOGEN,URINE 1 MG/DL (NORMAL)
[2018-04-28 20:33] LABS: AMPHETAMINE SCREEN, URINE POSITIVE (NEGATIVE); BARBITURATE SCREEN URINE NEGATIVE (NEGATIVE); BENZODIAZEPINES SCREEN URINE NEGATIVE (NEGATIVE); CANNABINOID SCREEN, URINE POSITIVE (NEGATIVE); COCAINE SCREEN URINE NEGATIVE (NEGATIVE); METHADONE STAT NEGATIVE (NEGATIVE); METHAMPHETAMINE SCREEN URINE S NEGATIVE (NEGATIVE); OPIATE SCREEN URINE NEGATIVE (NEGATIVE); OXYCODONE STAT NEGATIVE (NEGATIVE); PROPOXYPHENE STAT NEGATIVE (NEGATIVE); TRICYCLIC ANTIDEPRESSANTS SCRE NEGATIVE (NEGATIVE)
[2018-04-28 20:39] LABS: ALANINE AMINOTRANSFERASE 36 U/L (0-55); ALBUMIN 4.4 GM/DL (3.2-4.5); ALKALINE PHOSPHATASE 98 U/L (40-136); BILIRUBIN,TOTAL 0.3 MG/DL (0.1-1.0); BUN/CREATININE RATIO 11; CARBON DIOXIDE 27 MMOL/L (21-32); CHLORIDE 102 MMOL/L (98-107); CREATININE SERUM 0.96 MG/DL (0.60-1.30); GFR ESTIMATED > 60; GLUCOSE 87 MG/DL (70-105); POTASSIUM 3.2 MMOL/L (3.6-5.0); SODIUM 141 MMOL/L (135-145); TOTAL PROTEIN 7.2 GM/DL (6.4-8.2)
[2018-04-28 20:42] LABS: AMORPHOUS SEDIMENT,UR MOD AMOR URATES /LPF; WBC,URINE 0-2 /HPF
[2018-04-28] MEDS ORDERED: KCL 20 MEQ TAB (K-DUR) PO ONE (21:00)
[2018-04-28] MEDS ORDERED: CEPH-507 PO (21:03)
[2018-04-28] MEDS ORDERED: POTA-51 PO (21:03)
[2018-04-28 21:35] VITALS: BP 137/51
== END 2018-04-28 21:35 | disposition home or self-care (01) ==
LOC: EDUNIT# 19:15 → ER 19:16
DX: S81.802A Unspecified open wound, left lower leg, initial encounter (principal); R11.0 Nausea; I25.2 Old myocardial infarction; F41.9 Anxiety disorder, unspecified; Z87.19 Personal history of other diseases of the digestive system; Z77.22 Contact with and (suspected) exposure to environmental tobacco smoke (acute) (chronic); Z87.442 Personal history of urinary calculi; X58.XXXA Exposure to other specified factors, initial encounter
CPT/HCPCS: 36415; 80053; 80306; 81000; 83880; 84484; 85025; 93005

== ENCOUNTER 2018-05-07 15:24 | Emergency (ER) | payer SELFPAY ==
[~2018-05-07] VITALS: Ht 167.6 cm; Wt 63.5 kg
[~2018-05-07 15:24] MED LIST changes: +POTA-51 PO
[2018-05-07] MEDS ORDERED: fentaNYL INJECTION 100 MCG/2 ML AMP ONE (15:26)
--- OUTSIDE RECORDS SUMMARY | 2018-05-07 15:31 | XMS REPORT ---
Author Author TIFFANI BURCH Organization [facility] Address [address] [place] [address] Care Team Providers Care Vehicle Return Associate Name Role Phone TIFFANI BURCH Unavailable PROBLEMS Type Condition ICD9-CM Code [id number] Code Onset Dates Condition Status SNOMED Code Problem Acute non intractable tension-type headache G44.209 Active [id number] ALLERGIES No Known Allergies ENCOUNTERS Encounter Location Date Diagnosis [facility] [address] [facility] [id number] [address] Nov, Acute non intractable tension-type headache G44.209 IMMUNIZATIONS Vaccine Route Administration Date Status TORADOL (IM) 60 MG/2ML (UP TO 15 MG) IM Intramuscular November 30, 2017 Administered SOCIAL HISTORY Never Assessed REASON FOR VISIT headache for 7 days and reports his hair is falling out. [email or web address] PLAN OF CARE Activity Details Follow Up prn Reason: VITAL SIGNS Height 65 in 2017-11-30 Weight 143.4 lbs 2017-11-30 Temperature 98.7 degrees Fahrenheit 2017-11-30 Heart Rate 88 bpm 2017-11-30 Respiratory Rate 20 2017-11-30 BMI 23.86 kg/m2 2017-11-30 Blood pressure systolic 136 mmHg 2017-11-30 Blood pressure diastolic 78 mmHg 2017-11-30 MEDICATIONS Medication Instructions Dosage Frequency Start Date End Date Duration Status Tylenol 325 MG Orally every 4 hrs 1 tablet as needed 4h Active RESULTS No Results PROCEDURES Procedure Date Ordered Result Body Site TORADOL (IM) 60 MG/2ML (UP TO 15 MG) November 30, 2017 THER/PROPH/DIAG INJ, SC/IM November 30, 2017 INSTRUCTIONS MEDICATIONS ADMINISTERED No Known Medications
--- OUTSIDE RECORDS SUMMARY | 2018-05-07 15:32 | XMS REPORT | Continuity of Care Document ---
Author Author [facility] Organization [facility] Address Unknown Phone Unavailable Allergies Active Description Code Type Severity Reaction Onset Reported/Identified Relationship to Patient Clinical Status Yes [id number] (SULFA (SULFONAMIDE ANTIBIOTICS)) [id number] (SULFA (SULFONAMIDE ANTIBIOTICS)) Mild NAUSEA 07/15/2009 Yes No Known Drug Allergies [id number] Drug Allergy Unknown N/A 04/08/2015 Medications There is no data. Problems Date Dx Coded Attending Type Code Diagnosis Diagnosed By 05/20/2010 Ot 528.5 05/20/2010 Ot 873.53 05/20/2010 Ot E000.8 05/20/2010 Ot E849.0 05/20/2010 Ot E960.0 08/07/2010 Ot 300.00 08/07/2010 Ot 786.05 08/07/2010 Ot 786.50 08/07/2010 Ot 987.9 08/07/2010 Ot E000.0 08/07/2010 Ot E849.3 08/07/2010 Ot E891.3 09/16/2010 Ot 558.9 09/16/2010 Ot 787.03 03/24/2011 Ot 300.00 03/24/2011 Ot 786.09 03/24/2011 Ot 786.50 03/14/2012 Ot 844.9 03/14/2012 Ot 959.7 03/14/2012 Ot E000.8 03/14/2012 Ot E828.2 03/14/2012 Ot E849.0 06/07/2013 ADRI ANDREWS, CASSIE Wilson Ot 604.90 ORCHITIS/EPIDIDYMIT NOS 06/07/2013 ADRI ANDREWS, CASSIE Wilson Ot 789.09 ABDOMINAL PAIN, OTHER SPECIFIED SITE 04/08/2015 MARGARITA SCOTT [employer] Ot 883.0 OPEN WOUND OF FINGER 04/08/2015 MARGARITA SCOTT [employer] Ot E000.8 OTHER EXTERNAL CAUSE STATUS 04/08/2015 MARGARITA SCOTT [employer] Ot E918 CAUGHT BETWEEN OBJECTS 12/07/2017 CASSIE RUSH MD Ot F12.90 CANNABIS USE, UNSPECIFIED, UNCOMPLICATED 12/07/2017 CASSIE RUSH MD Ot F17.210 NICOTINE DEPENDENCE, CIGARETTES, UNCOMPL 12/07/2017 CASSIE RUSH MD Ot F41.9 ANXIETY DISORDER, UNSPECIFIED 12/07/2017 CASSIE RUSH MD, Ot I25.2 OLD MYOCARDIAL INFARCTION 12/07/2017 CASSIE RUSH MD Ot J32.9 CHRONIC SINUSITIS, UNSPECIFIED 12/07/2017 CASSIE RUSH MD Ot R07.89 OTHER CHEST PAIN 12/07/2017 CASSIE RUSH MD Ot R20.0 ANESTHESIA OF SKIN 12/07/2017 CASSIE RUSH MD Ot R51 HEADACHE 12/07/2017 CASSIE RUSH MD Ot Z87.19 PERSONAL HISTORY OF OTHER DISEASES OF TH 12/07/2017 CASSIE RUSH MD Ot Z87.442 PERSONAL HISTORY OF URINARY CALCULI 01/19/2018 DILLAN SHAFFER Ot F12.90 CANNABIS USE, UNSPECIFIED, UNCOMPLICATED 01/19/2018 DILLAN SHAFFER Ot I25.2 OLD MYOCARDIAL INFARCTION 01/19/2018 DILLAN SHAFFERP Ot 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 Results Test Result Range Serum or plasma C reactive protein measurement (mass/volume) - 12/07/17 13:03 Serum or plasma C reactive protein measurement (mass/volume) 0.11 mg /dL 0.00-0.50 Fibrin D-dimer FEU measurement in platelet poor plasma (mass/volume) - 13:03 Fibrin D-dimer FEU measurement in platelet poor plasma (mass/volume) < ug/mL 0.00-0.49 Erythrocyte sedimentation rate by westergren method - 12/07/17 13:03 Erythrocyte sedimentation rate by westergren method 1 mm 0-15 Complete blood count (CBC) with automated white blood cell (WBC) differential - 12/07/17 13:05 Blood leukocytes automated count (number/volume) 7.7 10*3/uL 4.3-11.0 Blood erythrocytes automated count (number/volume) 4.75 10*6/uL 4.35-5.85 Venous blood hemoglobin measurement (mass/volume) 15.0 g/dL 13.3-17.7 Blood hematocrit (volume fraction) 44 % 40-54 Automated erythrocyte mean corpuscular volume 93 [foz_us] 80-99 Automated erythrocyte mean corpuscular hemoglobin (mass per erythrocyte) 32 pg 25-34 Automated erythrocyte mean corpuscular hemoglobin concentration measurement ( mass/volume) 34 g/dL 32-36 Automated erythrocyte distribution width ratio 13.1 % 10.0-14.5 Automated blood platelet count (count/volume) 246 10*3/uL 130-400 Automated blood platelet mean volume measurement 9.5 [foz_us] 7.4-10.4 Automated blood neutrophils/100 leukocytes 49 % 42-75 Automated blood lymphocytes/100 leukocytes 35 % 12-44 Blood monocytes/100 leukocytes 9 % 0-12 Automated blood eosinophils/100 leukocytes 6 % 0-10 Automated blood basophils/100 leukocytes 1 % 0-10 Blood neutrophils automated count (number/volume) 3.8 10*3 1.8-7.8 Blood lymphocytes automated count (number/volume) 2.7 10*3 1.0-4.0 Blood monocytes automated count (number/volume) 0.7 10*3 0.0-1.0 Automated eosinophil count 0.5 10*3/uL 0.0-0.3 Automated blood basophil count (count/volume) 0.1 10*3/uL 0.0-0.1 Comprehensive metabolic panel - 12/07/17 13:05 Serum or plasma sodium measurement (moles/volume) 138 mmol/L 135-145 Serum or plasma potassium measurement (moles/volume) 4.0 mmol/L 3.6-5.0 Serum or plasma chloride measurement (moles/volume) 107 mmol/L 98-107 Carbon dioxide 24 mmol/L 21-32 Serum or plasma anion gap determination (moles/volume) 7 mmol/L 5-14 Serum or plasma urea nitrogen measurement (mass/volume) 17 mg/dL 7-18 Serum or plasma creatinine measurement (mass/volume) 0.92 mg/dL 0.60-1.30 Serum or plasma urea nitrogen/creatinine mass ratio 18 NRG Serum or plasma creatinine measurement with calculation of estimated glomerular filtration rate > NRG Serum or plasma glucose measurement (mass/volume) 99 mg/dL 70-105 Serum or plasma calcium measurement (mass/volume) 9.9 mg/dL 8.5-10.1 Serum or plasma total bilirubin measurement (mass/volume) 0.5 mg/dL 0.1-1.0 Serum or plasma alkaline phosphatase measurement (enzymatic activity/volume) 108 U/L 40-136 Serum or plasma aspartate aminotransferase measurement (enzymatic activity/ volume) 44 U/L 5-34 Serum or plasma alanine aminotransferase measurement (enzymatic activity/volume ) 170 U/L 0-55 Serum or plasma protein measurement (mass/volume) 7.6 g/dL 6.4-8.2 Serum or plasma albumin measurement (mass/volume) 4.7 g/dL 3.2-4.5 Magnesium - 12/07/17 13:05 Magnesium 2.4 mg/dL 1.8-2.4 Serum or plasma troponin i.cardiac measurement (mass/volume) - 12/07/17 13:05 Serum or plasma troponin i.cardiac measurement (mass/volume) < ng/ mL <0.30 Serum or plasma thyrotropin measurement by detection limit <=0.05 miu/l (units/ volume) - 12/07/17 13:05 Serum or plasma thyrotropin measurement by detection limit <=0.05 miu/l (units/ volume) 0.79 u[iU]/mL 0.35-4.94 Serum or plasma ethanol measurement (mass/volume) - 12/07/17 13:05 Serum or plasma ethanol measurement (mass/volume) < mg/dL <10 Complete urinalysis with reflex to culture - 12/07/17 13:27 Urine color determination YELLOW NRG Urine clarity determination CLEAR NRG Urine pH measurement by test strip 6.5 5-9 Specific gravity of urine by test strip 1.015 1.016- 1.022 Urine protein assay by test strip, semi-quantitative NEGATIVE NEGATIVE Urine glucose detection by automated test strip NEGATIVE NEGATIVE Erythrocytes detection in urine sediment by light microscopy NEGATIVE NEGATIVE Urine ketones detection by automated test strip NEGATIVE NEGATIVE Urine nitrite detection by test strip NEGATIVE NEGATIVE Urine total bilirubin detection by test strip NEGATIVE NEGATIVE Urine urobilinogen measurement by automated test strip (mass/volume) NORMAL NORMAL Urine leukocyte esterase detection by dipstick NEGATIVE NEGATIVE Automated urine sediment erythrocyte count by microscopy (number/high power field) NONE NRG Automated urine sediment leukocyte count by microscopy (number/high power field ) NONE NRG Bacteria detection in urine sediment by light microscopy NEGATIVE NRG Crystals detection in urine sediment by light microscopy NONE NRG Casts detection in urine sediment by light microscopy NONE NRG Mucus detection in urine sediment by light microscopy SMALL NRG Complete urinalysis with reflex to culture NO NRG Urine drug screening test - 12/07/17 13:27 Urine phencyclidine detection by screening method NEGATIVE NEGATIVE Urine benzodiazepines detection by screening method NEGATIVE NEGATIVE Urine cocaine detection NEGATIVE NEGATIVE Urine amphetamines detection by screening method NEGATIVE NEGATIVE Urine methamphetamine detection by screening method NEGATIVE NEGATIVE Urine cannabinoids detection by screening method POSITIVE NEGATIVE Urine opiates detection by screening method NEGATIVE NEGATIVE Urine barbiturates detection NEGATIVE NEGATIVE Screening urine tricyclic antidepressants detection NEGATIVE NEGATIVE Urine methadone detection by screening method NEGATIVE NEGATIVE Urine oxycodone detection NEGATIVE NEGATIVE Urine propoxyphene detection NEGATIVE NEGATIVE Serum or plasma troponin i.cardiac measurement (mass/volume) - 12/07/17 15:18 Serum or plasma troponin i.cardiac measurement (mass/volume) < ng/ mL <0.30 Gram stain microscopy - 01/17/18 15:30 Gram stain microscopy Few WBC's, occasional gram positive cocci NRG Bacteria identification in wound by culture - 01/17/18 15:30 Bacteria identification in wound by culture [id number] NRG FREE TEXT EXTERNAL SENSITIVITY REPORTED 01/18/18 16:00 NRG QUANTITY OF GROWTH Abundant Growth NRG MRSA AGAR MRSA isolated (Screening test for MRSA is positive) NRG CALL POSITIVES (F1 HELP) PRINTED TO ER PRINTER 3 01/18/18 16:00/ST NRG Bacterial susceptibility panel - 01/17/18 15:30 Oxacillin susceptibility test by minimum inhibitory concentration > = NRG Gentamicin susceptibility test by minimum inhibitory concentration < = NRG Clindamycin susceptibility test by minimum inhibitory concentration <= NRG Erythromycin susceptibility test by minimum inhibitory concentration >= NRG Trimethoprim/sulfamethoxazole susceptibility test by minimum inhibitoryconcentration S NRG Vancomycin susceptibility test by minimum inhibitory concentration < = NRG Levofloxacin susceptibility test by minimum inhibitory concentration <= NRG Rifampin susceptibility test by minimum inhibitory concentration <= NRG Tetracycline susceptibility test by minimum inhibitory concentration <= NRG Complete blood count (CBC) with automated white blood cell (WBC) differential - 04/28/18 20:08 Blood leukocytes automated count (number/volume) 7.1 10*3/uL 4.3-11.0 Blood erythrocytes automated count (number/volume) 4.58 10*6/uL 4.35-5.85 Venous blood hemoglobin measurement (mass/volume) 14.6 g/dL 13.3-17.7 Blood hematocrit (volume fraction) 41 % 40-54 Automated erythrocyte mean corpuscular volume 90 [foz_us] 80-99 Automated erythrocyte mean corpuscular hemoglobin (mass per erythrocyte) 32 pg 25-34 Automated erythrocyte mean corpuscular hemoglobin concentration measurement ( mass/volume) 35 g/dL 32-36 Automated erythrocyte distribution width ratio 12.6 % 10.0-14.5 Automated blood platelet count (count/volume) 270 10*3/uL 130-400 Automated blood platelet mean volume measurement 9.4 [foz_us] 7.4-10.4 Automated blood neutrophils/100 leukocytes 56 % 42-75 Automated blood lymphocytes/100 leukocytes 31 % 12-44 Blood monocytes/100 leukocytes 10 % 0-12 Automated blood eosinophils/100 leukocytes 2 % 0-10 Automated blood basophils/100 leukocytes 0 % 0-10 Blood neutrophils automated count (number/volume) 4.0 10*3 1.8-7.8 Blood lymphocytes automated count (number/volume) 2.2 10*3 1.0-4.0 Blood monocytes automated count (number/volume) 0.7 10*3 0.0-1.0 Automated eosinophil count 0.1 10*3/uL 0.0-0.3 Automated blood basophil count (count/volume) 0.0 10*3/uL 0.0-0.1 Comprehensive metabolic panel - 04/28/18 20:08 Serum or plasma sodium measurement (moles/volume) 141 mmol/L 135-145 Serum or plasma potassium measurement (moles/volume) 3.2 mmol/L 3.6-5.0 Serum or plasma chloride measurement (moles/volume) 102 mmol/L 98-107 Carbon dioxide 27 mmol/L 21-32 Serum or plasma anion gap determination (moles/volume) 12 mmol/L 5-14 Serum or plasma urea nitrogen measurement (mass/volume) 11 mg/dL 7-18 Serum or plasma creatinine measurement (mass/volume) 0.96 mg/dL 0.60-1.30 Serum or plasma urea nitrogen/creatinine mass ratio 11 NRG Serum or plasma creatinine measurement with calculation of estimated glomerular filtration rate > NRG Serum or plasma glucose measurement (mass/volume) 87 mg/dL 70-105 Serum or plasma calcium measurement (mass/volume) 10.0 mg/dL 8.5-10.1 Serum or plasma total bilirubin measurement (mass/volume) 0.3 mg/dL 0.1-1.0 Serum or plasma alkaline phosphatase measurement (enzymatic activity/volume) 98 U/L 40-136 Serum or plasma aspartate aminotransferase measurement (enzymatic activity/ volume) 15 U/L 5-34 Serum or plasma alanine aminotransferase measurement (enzymatic activity/volume ) 36 U/L 0-55 Serum or plasma protein measurement (mass/volume) 7.2 g/dL 6.4-8.2 Serum or plasma albumin measurement (mass/volume) 4.4 g/dL 3.2-4.5 CALCIUM CORRECTED 9.7 mg/dL 8.5-10.1 Serum or plasma troponin i.cardiac measurement (mass/volume) - 04/28/18 20:08 Serum or plasma troponin i.cardiac measurement (mass/volume) < ng/ mL <0.30 Serum or plasma lithium measurement (moles/volume) - 04/28/18 20:08 BNP level 13.9 pg/mL <100.0 Urine drug screening test - 04/28/18 20:09 Urine phencyclidine detection by screening method NEGATIVE NEGATIVE Urine benzodiazepines detection by screening method NEGATIVE NEGATIVE Urine cocaine detection NEGATIVE NEGATIVE Urine amphetamines detection by screening method POSITIVE NEGATIVE Urine methamphetamine detection by screening method NEGATIVE NEGATIVE Urine cannabinoids detection by screening method POSITIVE NEGATIVE Urine opiates detection by screening method NEGATIVE NEGATIVE Urine barbiturates detection NEGATIVE NEGATIVE Screening urine tricyclic antidepressants detection NEGATIVE NEGATIVE Urine methadone detection by screening method NEGATIVE NEGATIVE Urine oxycodone detection NEGATIVE NEGATIVE Urine propoxyphene detection NEGATIVE NEGATIVE Complete urinalysis with reflex to culture - 04/28/18 20:09 Urine color determination YELLOW NRG Urine clarity determination CLEAR NRG Urine pH measurement by test strip 7 5-9 Specific gravity of urine by test strip 1.015 1.016- 1.022 Urine protein assay by test strip, semi-quantitative NEGATIVE NEGATIVE Urine glucose detection by automated test strip NEGATIVE NEGATIVE Erythrocytes detection in urine sediment by light microscopy NEGATIVE NEGATIVE Urine ketones detection by automated test strip NEGATIVE NEGATIVE Urine nitrite detection by test strip NEGATIVE NEGATIVE Urine total bilirubin detection by test strip NEGATIVE NEGATIVE Urine urobilinogen measurement by automated test strip (mass/volume) 1 mg/dL NORMAL Urine leukocyte esterase detection by dipstick 1+ NEGATIVE Automated urine sediment erythrocyte count by microscopy (number/high power field) NONE NRG Automated urine sediment leukocyte count by microscopy (number/high power field ) [HPF] NRG Bacteria detection in urine sediment by light microscopy NONE NRG Crystals detection in urine sediment by light microscopy PRESENT NRG Casts detection in urine sediment by light microscopy NONE NRG Mucus detection in urine sediment by light microscopy NEGATIVE NRG Complete urinalysis with reflex to culture NO NRG Amorphous sediment detection in urine sediment by light microscopy MOD NAOMI URATES NRG Encounters ACCT No. Visit Date/Time Discharge Status Pt. Type Provider Facility Loc./Unit Complaint [id number] 04/28/2018 19:16:00 04/28/2018 23:59:59 CLS Emergency MARGARITA SCOTT APRN [facility] ER BITE ON L LEG,POSS INFECTED [id number] 01/17/2018 14:31:00 01/17/2018 15:40:00 DIS Outpatient DILLAN SHAFFER [facility] ER L ELBOW REDNESS [id number] 12/07/2017 12:50:00 12/07/2017 16:38:00 DIS Emergency ADRI ANDREWS, CASSIE Wilson [facility] ER CP,SOB,LEFT SIDE OF FACE NUMB,VIDES,HAIR LOSS [id number] 04/08/2015 16:23:00 04/08/2015 17:03:00 DIS Emergency MARGARITA SCOTT APRN [facility] ER L INDEX FINGER INJ/LAC [id number] 09/05/2013 12:36:00 09/05/2013 23:59:59 CLS Outpatient [id number] 06/07/2013 14:32:00 06/07/2013 17:18:00 DIS Emergency ADRI ANDREWS, CASSIE Wilson [facility] ER ABD PAIN [id number] 04/08/2015 16:24:00 Document Registration [id number] 03/24/2011 14:25:00 Document Registration [id number] 09/16/2010 13:16:00 Document Registration [id number] 08/07/2010 10:40:00 Document Registration [id number] 05/20/2010 08:51:00 Document Registration
[2018-05-07] MEDS ORDERED: HYDROmorphone 2 MG/ML VIAL (DILAUDID) IV STA (15:34)
[2018-05-07 16:18] LABS: BASOPHILS # (AUTO) 0.1 10^3/uL (0.0-0.1); BASOPHILS % (AUTO) 1 % (0-10); EOSINOPHILS # (AUTO) 0.3 10^3/uL (0.0-0.3); EOSINOPHILS % (AUTO) 4 % (0-10); HEMATOCRIT 38 % (40-54); LYMPHOCYTES # (AUTO) 2.5 X 10^3 (1.0-4.0); LYMPHOCYTES % (AUTO) 34 % (12-44); MEAN CORPUSCULAR HEMOGLOBIN 32 PG (25-34); MEAN CORPUSCULAR HGB CONC 35 G/DL (32-36); MEAN CORPUSCULAR VOLUME 92 FL (80-99); MEAN PLATELET VOLUME 9.3 FL (7.4-10.4); MONOCYTES # (AUTO) 0.3 X 10^3 (0.0-1.0); MONOCYTES % (AUTO) 5 % (0-12); NEUTROPHILS # (AUTO) 4.3 X 10^3 (1.8-7.8); NEUTROPHILS % (AUTO) 57 % (42-75); PLATELET COUNT 251 10^3/uL (130-400); RED BLOOD COUNT 4.07 10^6/uL (4.35-5.85); WHITE BLOOD COUNT 7.5 10^3/uL (4.3-11.0)
--- NOTE | 2018-05-07 16:19 | Diagnostic Imaging Report ---
EXAM: Pelvis radiograph. INDICATION: Left lower extremity injury. COMPARISON: None. FINDINGS: No fracture or malalignment. No suspicious osteoblastic or lytic lesions. Soft tissue shadows are unremarkable. IMPRESSION: Negative pelvis radiograph. Dictated by: Dictated on workstation # [id number]
--- NOTE | 2018-05-07 16:20 | Diagnostic Imaging Report ---
EXAM: FEMUR, LEFT, 2 VIEWS INDICATION: Left lower extremity injury. COMPARISON: None. FINDINGS: No fracture or malalignment. Soft tissue shadows are unremarkable. No suspicious osteoblastic or lytic lesions. IMPRESSION: Negative left femur radiographs. Dictated by: Dictated on workstation # [id number]
--- NOTE | 2018-05-07 16:21 | Diagnostic Imaging Report ---
EXAM: Tibia/fibula, left, 2 views. INDICATION: Left lower extremity injury. COMPARISON: None. FINDINGS: No fracture or malalignment. No suspicious osteoblastic or lytic lesions. No radiopaque foreign bodies. IMPRESSION: Negative left tibia and fibula radiographs. Dictated by: Dictated on workstation # [id number]
[2018-05-07 16:38] LABS: ALANINE AMINOTRANSFERASE 21 U/L (0-55); ALBUMIN 4.1 GM/DL (3.2-4.5); ALKALINE PHOSPHATASE 83 U/L (40-136); BILIRUBIN,TOTAL 0.4 MG/DL (0.1-1.0); BUN/CREATININE RATIO 12; CARBON DIOXIDE 20 MMOL/L (21-32); CHLORIDE 107 MMOL/L (98-107); CREATININE SERUM 0.92 MG/DL (0.60-1.30); GFR ESTIMATED > 60; GLUCOSE 169 MG/DL (70-105); POTASSIUM 3.4 MMOL/L (3.6-5.0); SODIUM 139 MMOL/L (135-145); TOTAL PROTEIN 6.7 GM/DL (6.4-8.2)
[2018-05-07] MEDS ORDERED: KETOROLAC 30 MG/ML VIAL IVP ONE (16:45)
[2018-05-07 17:20] LABS: AMPHETAMINE SCREEN, URINE POSITIVE (NEGATIVE); BARBITURATE SCREEN URINE NEGATIVE (NEGATIVE); BENZODIAZEPINES SCREEN URINE NEGATIVE (NEGATIVE); CANNABINOID SCREEN, URINE NEGATIVE (NEGATIVE); COCAINE SCREEN URINE NEGATIVE (NEGATIVE); METHADONE STAT NEGATIVE (NEGATIVE); METHAMPHETAMINE SCREEN URINE S POSITIVE (NEGATIVE); OPIATE SCREEN URINE POSITIVE (NEGATIVE); OXYCODONE STAT NEGATIVE (NEGATIVE); PROPOXYPHENE STAT NEGATIVE (NEGATIVE); TRICYCLIC ANTIDEPRESSANTS SCRE NEGATIVE (NEGATIVE)
--- NOTE | 2018-05-07 17:24 | Diagnostic Imaging Report ---
INDICATION: Crush injury, lacerations. FINDINGS: No fracture, dislocation or retained opaque foreign body is found. No soft tissue gas. IMPRESSION: No acute finding at three-view left foot. Dictated by: Dictated on workstation # [id number]
--- NOTE | 2018-05-07 17:39 | ED Trauma-Multisystem ---
General Chief Complaint: Lower Extremity Stated Complaint: LEFT LOWER EXTRIMITY Nursing Triage Note: PT CO OF R LOWER EXT PAIN, STATES LARGE CEMENT PAD SCRAPED DOWN FRONT OF R CALF , PT HAS LAC TO R LEG CRYING IN PAIN Source of Information: Patient Exam Limitations: No Limitations History of Present Illness Date Seen by Provider: May 07, 2018 Time Seen by Provider: 15:26 Initial Comments This 42-year-old man presents to the emergency room in distress from a left leg injury. He was working on a project with a large slab of concrete that was being moved. The slab fell and grazed his left domínguez. He denies any injury to other body parts. There is no head or neck injury and no loss of consciousness. He appears to have a high pressure linear abrasion over the anterior left lower leg. Distal sensation, pulses, and range of motion intact. Allergies and Home Medications Allergies Coded Allergies: No Known Drug Allergies (Unverified , 04/08/15) Patient Home Medication List Home Medication List Reviewed: Yes Review of Systems Review of Systems Constitutional: no symptoms reported Eyes: No Symptoms Reported Ears: No Symptoms Reported Nose: No Symptoms Reported Mouth: No Symptoms Reported Throat: No Symptoms to Report Respiratory: no symptoms reported Cardiovascular: No Symptoms Reported Gastrointestinal: no symptoms reported Genitourinary: no symptoms reported Musculoskeletal: see HPI Skin: see HPI Psychiatric/Neurological: No Symptoms Reported Past Qwavvbf-Knlxhs-Knykxf Hx Past Med/Social Hx: Reviewed Nursing Past Med/Soc Hx Patient Social History Alcohol Use: Denies Use Recreational Drug Use: Yes (PAST, POT AND ALCOHOL) Drug of Choice: Methamphetamines Smoking Status: Current Everyday Smoker Type Used: Cigarettes 2nd Hand Smoke Exposure: Yes Recent Foreign Travel: No Contact w/Someone Who Travel: No Recent Infectious Disease Expo: No Recent Hopitalizations: No Immunizations Up To Date Tetanus Booster (TDap): More than 5yrs Seasonal Allergies Seasonal Allergies: No Past Medical History Surgeries: Yes (KIDNEY STONE) Abdominal Respiratory: No Cardiac: Yes (POSSIBLE [place]) Heart Attack Neurological: No Genitourinary: Yes Kidney Stones Gastrointestinal: Yes Crohns Disease, Irritable Bowel Musculoskeletal: No Endocrine: No HEENT: No Cancer: No Psychosocial: Yes (polysubstance abuse) Anxiety Integumentary: No Blood Disorders: No Adverse Reaction/Blood Tranf: No Physical Exam Vital Signs Height, Weight, BMI Height: 5'6.00" Weight: 140lbs. 0oz. 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 II- XII Norm as Tested Skin: Normal Color, Warm/Dry, Other (high pressure linear abrasion to the left domínguez) Procedures/Interventions Suture Size: 4-0 Progress/Results/Core Measures Results/Orders Lab Results Laboratory Tests Test 05/07/18 16:03 05/07/18 16:47 Range/Units White Blood Count 7.5 4.3-11.0 10^3/uL Red Blood Count 4.07 L 4.35-5.85 10^6/uL Hemoglobin 13.0 L 13.3-17.7 G/DL Hematocrit 38 L 40-54 % Mean Corpuscular Volume 92 80-99 FL Mean Corpuscular Hemoglobin 32 25-34 PG Mean Corpuscular Hemoglobin Concent 35 32-36 G/DL Red Cell Distribution Width 13.0 10.0-14.5 % Platelet Count 251 130-400 10^3/uL Mean Platelet Volume 9.3 7.4-10.4 FL Neutrophils (%) (Auto) 57 42-75 % Lymphocytes (%) (Auto) 34 12-44 % Monocytes (%) (Auto) 5 0-12 % Eosinophils (%) (Auto) 4 0-10 % Basophils (%) (Auto) 1 0-10 % Neutrophils # (Auto) 4.3 1.8-7.8 X 10^3 Lymphocytes # (Auto) 2.5 1.0-4.0 X 10^3 Monocytes # (Auto) 0.3 0.0-1.0 X 10^3 Eosinophils # (Auto) 0.3 0.0-0.3 10^3/uL Basophils # (Auto) 0.1 0.0-0.1 10^3/uL Neutrophils % (Manual) 45 % Lymphocytes % (Manual) 37 % Monocytes % (Manual) 9 % Eosinophils % (Manual) 6 % Band Neutrophils 3 % Polychromasia SLIGHT Anisocytosis SLIGHT Macrocytosis SLIGHT Sodium Level 139 135-145 MMOL/L Potassium Level 3.4 L 3.6-5.0 MMOL/L Chloride Level 107 98-107 MMOL/L Carbon Dioxide Level 20 L 21-32 MMOL/L Anion Gap 12 5-14 MMOL/L Blood Urea Nitrogen 11 7-18 MG/DL Creatinine 0.92 0.60-1.30 MG/DL Estimat Glomerular Filtration Rate > 60 BUN/Creatinine Ratio 12 Glucose Level 169 H 70-105 MG/DL Calcium Level 9.0 8.5-10.1 MG/DL Corrected Calcium 8.9 8.5-10.1 MG/DL Total Bilirubin 0.4 0.1-1.0 MG/DL Aspartate Amino Transf (AST/SGOT) 17 5-34 U/L Alanine Aminotransferase (ALT/SGPT) 21 0-55 U/L Alkaline Phosphatase 83 40-136 U/L Total Protein 6.7 6.4-8.2 GM/DL Albumin 4.1 3.2-4.5 GM/DL Serum Alcohol < 10 <10 MG/DL Urine Opiates Screen POSITIVE H NEGATIVE Urine Oxycodone Screen NEGATIVE NEGATIVE Urine Methadone Screen NEGATIVE NEGATIVE Urine Propoxyphene Screen NEGATIVE NEGATIVE Urine Barbiturates Screen NEGATIVE NEGATIVE Ur Tricyclic Antidepressants Screen NEGATIVE NEGATIVE Urine Phencyclidine Screen NEGATIVE NEGATIVE Urine Amphetamines Screen POSITIVE H NEGATIVE Urine Methamphetamines Screen POSITIVE H NEGATIVE Urine Benzodiazepines Screen NEGATIVE NEGATIVE Urine Cocaine Screen NEGATIVE NEGATIVE Urine Cannabinoids Screen NEGATIVE NEGATIVE My Orders Orders - CASSIE RUSH MD Fentanyl Injection (Sublimaze Injection (05/07/18 15:26) Alcohol (05/07/18 15:30) Cbc With Automated Diff (05/07/18 15:30) Comprehensive Metabolic Panel (05/07/18 15:30) Drug Screen Stat (Urine) (05/07/18 15:30) Saline Lock/Iv-Start (05/07/18 15:30) Monitor-Rhythm Ecg Trace Only (05/07/18 15:30) Chest 1 View, Ap/Pa Only (05/07/18 15:30) Femur, Left, 2 Views (05/07/18 15:30) Tibia/Fibula, Left, 2 Views (05/07/18 15:30) Pelvis (05/07/18 15:30) Hydromorphone Injection (Dilaudid Inject (05/07/18 15:34) Ketorolac Injection (Toradol Injection) (05/07/18 16:45) Foot, Left, 3 Views (05/07/18 16:56) Manual Differential (05/07/18 16:03) Iv Push Clammer Ed (05/07/18 ) Medications Given in ED Vital Signs/I&O Blood Pressure Mean: 86 Progress Progress Note : Progress Note Patient required multiple doses of narcotic analgesics. X-rays revealed no fractures. Toradol was also given. Patient was been ambulatory. He was up-to- date on his tetanus immunization. I addressed the positive drug screen as well. Wound was cleaned with sterile solution and chlorhexidine soap. Patient developed bruising of the foot which was later examined and x-rayed. No fractures were identified. After discharge patient came back to the waiting room with an apparent hematoma over the dorsum of the foot. This was reexamined , x-ray was viewed again, and patient was dismissed with an Yunior bandage wrapped around the hematoma and instructions to elevate and ice. Diagnostic Imaging Diagonstic Imaging: Xray Plain Films/CT/US/NM/MRI: leg Comments Left tib-fib x-ray viewed by me and report reviewed. See report below: NAME: ARTIE JONAS JR [facility] REC#: [id number] PT STATUS: [facility] ER : 1975 PHYSICIAN: CASSIE RUSH MD ADMIT DATE: 05/07/18/ER Signed Date of Exam: 05/07/18 TIBIA/FIBULA, LEFT, 2 VIEWS EXAM: Tibia/fibula, left, 2 views. INDICATION: Left lower extremity injury. COMPARISON: None. FINDINGS: No fracture or malalignment. No suspicious osteoblastic or lytic lesions. No radiopaque foreign bodies. IMPRESSION: Negative left tibia and fibula radiographs. Dictated by: Dictated on workstation # [id number] Dict: 05/07/18 1617 Trans: 05/07/181805 Interpreted by: BABS BERNABE MD Electronically signed by: BABS BERNABE MD 05/07/181805 Diagonstic Imaging: Xray Plain Films/CT/US/NM/MRI: pelvis Comments Pelvis x-ray viewed by me and report reviewed. See report below: NAME: ARTIE JONAS [facility] REC#: [id number] PT STATUS: [facility] ER : 1975 PHYSICIAN: CASSIE RUSH MD ADMIT DATE: 05/07/18/ER Signed Date of Exam: 05/07/18 PELVIS EXAM: Pelvis radiograph. INDICATION: Left lower extremity injury. COMPARISON: None. FINDINGS: No fracture or malalignment. No suspicious osteoblastic or lytic lesions. Soft tissue shadows are unremarkable. IMPRESSION: Negative pelvis radiograph. Dictated by: Dictated on workstation # [id number] Dict: 05/07/181614 Trans: 05/07/181805 Interpreted by: BABS BERNABE MD Electronically signed by: BABS BERNABE MD 05/07/181805 Diagonstic Imaging: Xray Plain Films/CT/US/NM/MRI: leg Comments Left femur x-ray viewed by me and report reviewed. See report below: NAME: ARTIE JONAS [facility] REC#: [id number] PT STATUS: [facility] ER : 1975 PHYSICIAN: CASSIE RUSH MD ADMIT DATE: 05/07/18/ER Signed Date of Exam: 05/07/18 FEMUR, LEFT, 2 VIEWS EXAM: FEMUR, LEFT, 2 VIEWS INDICATION: Left lower extremity injury. COMPARISON: None. FINDINGS: No fracture or malalignment. Soft tissue shadows are unremarkable. No suspicious osteoblastic or lytic lesions. IMPRESSION: Negative left femur radiographs. Dictated by: Dictated on workstation # [id number] Dict: 05/07/181615 Trans: 05/07/181805 Interpreted by: BABS BERNABE MD Electronically signed by: BABS BERNABE MD 05/07/181805 Diagonstic Imaging: Xray Plain Films/CT/US/NM/MRI: chest Comments Chest x-ray viewed by me and report reviewed. See report below: NAME: ARTIE JONAS JR [facility] REC#: [id number] PT STATUS: [facility] ER : 1975 PHYSICIAN: CASSIE RUSH MD ADMIT DATE: 05/07/18/ER Signed Date of Exam: 05/07/18 CHEST 1 VIEW, AP/PA ONLY EXAMINATION: Chest, single frontal view. INDICATION: Trauma. COMPARISON: Multiple priors, most recent on 12/07/2017. FINDINGS: The lungs are clear and the pulmonary vasculature is normal. There is no pleural effusion or pneumothorax. The cardiomediastinal silhouette is normal. No acute osseous abnormality is identified. IMPRESSION: No acute chest disease. No significant change. Dictated by: Dictated on workstation # [id number] Dict: 05/07/18 1559 Trans: 05/07/181702 Interpreted by: BRENT ALVAREZ DO Electronically signed by: BRENT ALVAREZ DO 05/07/181702 Diagonstic Imaging: Xray Plain Films/CT/US/NM/MRI: other (left foot) Comments Left foot x-ray viewed by me and report reviewed. See report below: NAME: ARTIE JONAS JR [facility] REC#: [id number] PT STATUS: [facility] : 1975 PHYSICIAN: CASSIE RUSH MD ADMIT DATE: 05/07/18/ER Signed Date of Exam: 05/07/18 FOOT, LEFT, 3 VIEWS INDICATION: Crush injury, lacerations. FINDINGS: No fracture, dislocation or retained opaque foreign body is found. No soft tissue gas. IMPRESSION: No acute finding at three-view left foot. Dictated by: Dictated on workstation # [id number] Dict: 05/07/18 1718 Trans: 05/07/181758 Interpreted by: CRYSTAL LONDONO Electronically signed by: CRYSTAL LONDONO 05/07/181758 Departure Impression Primary Impression: Contusion of left leg Qualified Codes: S80.12XA - Contusion of left lower leg, initial encounter Additional Impressions: Contusion of left foot Qualified Codes: S90.32XA - Contusion of left foot, initial encounter Abrasion, left lower leg, initial encounter Traumatic hematoma of left foot Qualified Codes: S90.32XA - Contusion of left foot, initial encounter Disposition: 01 HOME, SELF-CARE Condition: Improved Departure-Patient Inst. Decision time for Depature: 17:30 Referrals: NO,LOCAL PHYSICIAN (PCP/Family) Primary Care Physician Patient Instructions: Contusion (DC) Add. Discharge Instructions: Take ibuprofen up to 600 mg every 6 hours as needed for pain. Add Tylenol ( acetaminophen) up to 1000 mg every 6 hours as needed for additional pain relief. Follow-up with your primary care provider if you have any problems or concerns. Return to the ER if you have worsening symptoms. Watch your wound for signs or symptoms of in infection such as increasing redness, increasing swelling, increasing pain, puslike drainage, or fever. Apply clean dressings to your wound until healed. Apply antibiotic ointment will help prevent dressings from sticking to the wound. All discharge instructions reviewed with patient and/or family. Voiced understanding. Work/School Note: Work Release Form Date Seen in the Emergency Department: May 07, 2018 Return to Work: May 08, 2018 Other Restrictions Listed Below: Keep the wound covered, clean, and dry until healed. CASSIE RUSH MD May 07, 2018 17:39
[2018-05-07 17:45] VITALS: BP 148/55
[2018-05-07 18:28] LABS: ANISOCYTOSIS SLIGHT; BAND NEUTROPHILS 3 %; EOSINOPHILS % (MANUAL) 6 %; LYMPHOCYTES % (MANUAL) 37 %; MONOCYTES % (MANUAL) 9 %; NEUTROPHILS % (MANUAL) 45 %; POLYCHROMASIA SLIGHT
--- NOTE | 2018-05-09 13:03 | Diagnostic Imaging Report ---
EXAMINATION: Chest, single frontal view. INDICATION: Trauma. COMPARISON: Multiple priors, most recent on 12/07/2017. FINDINGS: The lungs are clear and the pulmonary vasculature is normal. There is no pleural effusion or pneumothorax. The cardiomediastinal silhouette is normal. No acute osseous abnormality is identified. IMPRESSION: No acute chest disease. No significant change. Dictated by: Dictated on workstation # [id number]
== END 2018-05-07 17:50 | disposition home or self-care (01) ==
LOC: EDUNIT# 15:24 → ER 15:26
DX: S80.12XA Contusion of left lower leg, initial encounter (principal); S90.32XA Contusion of left foot, initial encounter; M79.605 Pain in left leg; I25.2 Old myocardial infarction; F41.9 Anxiety disorder, unspecified; F17.210 Nicotine dependence, cigarettes, uncomplicated; Z87.442 Personal history of urinary calculi; Z87.19 Personal history of other diseases of the digestive system; X58.XXXA Exposure to other specified factors, initial encounter
CPT/HCPCS: 36415; 71045; 72170; 73552; 73590; 73630; 80053; 80306; 80320; 85007; 85025; 85027; 96374; 96375

== ENCOUNTER 2018-11-20 22:57 | Emergency (ER) | payer SELFPAY ==
--- OUTSIDE RECORDS SUMMARY | 2018-11-20 23:02 | XMS REPORT | Continuity of Care Document ---
Author Author [facility] Organization [facility] Address Unknown Phone Unavailable Allergies Active Description Code Type Severity Reaction Onset Reported/Identified Relationship to Patient Clinical Status Yes [id number] (SULFA (SULFONAMIDE ANTIBIOTICS)) [id number] (SULFA (SULFONAMIDE ANTIBIOTICS)) Mild NAUSEA 07/15/2009 Yes No Known Drug Allergies [id number] Drug Allergy Unknown N/A 04/08/2015 Medications There [...] PAIN, OTHER SPECIFIED SITE 04/08/2015 MARGARITA SCOTT UX RESEARCH ASSOCIATE Ot 883.0 OPEN WOUND OF FINGER 04/08/2015 MARGARITA SCOTT UX RESEARCH ASSOCIATE Ot E000.8 OTHER EXTERNAL CAUSE STATUS 04/08/2015 MARGARITA SCOTT UX RESEARCH ASSOCIATE Ot E918 CAUGHT BETWEEN OBJECTS 12/07/2017 ADRI ANDREWS, CASSIE Wilson Ot F12.90 CANNABIS USE, UNSPECIFIED, UNCOMPLICATED 12/07/2017 ADRI ANDREWS, CASSIE Wilson Ot F17.210 NICOTINE DEPENDENCE, CIGARETTES, UNCOMPL 12/07/2017 CASSIE RUSH MD Ot F41.9 ANXIETY DISORDER, UNSPECIFIED 12/07/2017 CASSIE RUSH MD Ot I25.2 OLD MYOCARDIAL INFARCTION 12/07/2017 CASSIE RUSH MD Ot J32.9 CHRONIC SINUSITIS, UNSPECIFIED 12/07/2017 CASSIE RUSH MD Ot R07.89 OTHER CHEST PAIN 12/07/2017 CASSIE RUSH MD Ot R20.0 ANESTHESIA OF SKIN 12/07/2017 CASSIE RUSH MD Ot R51 HEADACHE 12/07/2017 CASSIE RUSH MD Ot Z87.19 PERSONAL HISTORY OF OTHER DISEASES OF TH 12/07/2017 CASSIE RUSH MD Ot Z87.442 PERSONAL HISTORY OF URINARY CALCULI 01/17/2018 DILLAN SHAFFERP Ot F12.90 CANNABIS USE, UNSPECIFIED, UNCOMPLICATED 01/17/2018 DILLAN SHAFFER Ot I25.2 OLD MYOCARDIAL INFARCTION 01/17/2018 DILLAN SHAFFER REACTOR FUELING SUPERVISOR Ot 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 01/17/2018 DILLAN SHAFFER REACTOR FUELING SUPERVISOR Ot K58.9 IRRITABLE BOWEL SYNDROME WITHOUT DIARRHE 01/17/2018 DILLAN SHAFFER Ot L02.414 CUTANEOUS ABSCESS OF LEFT UPPER LIMB 01/17/2018 DILLAN SHAFFERP Ot L03.114 CELLULITIS OF LEFT UPPER LIMB 01/17/2018 DILLAN SHAFFER REACTOR FUELING SUPERVISOR Ot M25.522 PAIN IN LEFT ELBOW 01/17/2018 DILLAN SHAFFERP Ot Z23 ENCOUNTER FOR IMMUNIZATION 01/17/2018 DILLAN SHAFFERP Ot Z87.442 PERSONAL HISTORY OF URINARY CALCULI 01/19/2018 DILLAN SHAFFER REACTOR FUELING SUPERVISOR Ot F12.90 CANNABIS USE, UNSPECIFIED, UNCOMPLICATED 01/19/2018 DILLAN SHAFFER REACTOR FUELING SUPERVISOR Ot I25.2 OLD MYOCARDIAL INFARCTION 01/19/2018 DILLAN SHAFFER REACTOR FUELING SUPERVISOR Ot 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 01/19/2018 DENEA DILLAN TENORIOP Ot K58.9 IRRITABLE BOWEL SYNDROME WITHOUT DIARRHE 01/19/2018 DEENA, DILLAN TENORIOP Ot L02.414 CUTANEOUS ABSCESS OF LEFT UPPER LIMB 01/19/2018 DEENA DILLAN TENORIOP Ot L03.114 CELLULITIS OF LEFT UPPER LIMB 01/19/2018 DEENA DILLAN TENORIOP Ot M25.522 PAIN IN LEFT ELBOW 01/19/2018 DEENADILLANP Ot Z23 ENCOUNTER FOR IMMUNIZATION 01/19/2018 DEENADILLANP Ot Z87.442 PERSONAL HISTORY OF URINARY CALCULI 04/28/2018 MARGARITA SCOTT APRN Ot F41.9 ANXIETY DISORDER, UNSPECIFIED 04/28/2018 MARGARITA SCOTT APRN Ot I25.2 OLD MYOCARDIAL INFARCTION 04/28/2018 MARGARITA SCOTT APRN Ot L98.9 DISORDER OF THE SKIN AND SUBCUTANEOUS TI 04/28/2018 MARGARITA SCOTT APRN Ot R11.0 NAUSEA 04/28/2018 MARGARITA SCOTT APRN Ot S81.802A UNSPECIFIED OPEN WOUND, LEFT LOWER LEG, 04/28/2018 MARGARITA SCOTT APRN Ot X58.XXXA EXPOSURE TO OTHER SPECIFIED FACTORS, INI 04/28/2018 MARGARITA SCOTT APRN Ot Z77.22 CNTCT W AND EXPSR TO ENVIRON TOBACCO SMO 04/28/2018 MARGARITA SCOTT APRN Ot Z87.19 PERSONAL HISTORY OF OTHER DISEASES OF TH 04/28/2018 MARGARITA SCOTT APRN Ot Z87.442 PERSONAL HISTORY OF URINARY CALCULI 05/07/2018 MARGARITA SCOTT APRN Ot F41.9 ANXIETY DISORDER, UNSPECIFIED 05/07/2018 MARGARITA SCOTT APRN Ot I25.2 OLD MYOCARDIAL INFARCTION 05/07/2018 MARGARITA SCOTT APRN Ot L98.9 DISORDER OF THE SKIN AND SUBCUTANEOUS TI 05/07/2018 MARGARITA SCOTT APRN Ot R11.0 NAUSEA 05/07/2018 MARGARITA SCOTT APRN Ot S81.802A UNSPECIFIED OPEN WOUND, LEFT LOWER LEG, 05/07/2018 MARGARITA SCOTT APRN Ot X58.XXXA EXPOSURE TO OTHER SPECIFIED FACTORS, INI 05/07/2018 MARGARITA SCOTT APRN Ot Z77.22 CNTCT W AND EXPSR TO ENVIRON TOBACCO SMO 05/07/2018 MARGARITA SCOTT UX RESEARCH ASSOCIATE Ot Z87.19 PERSONAL HISTORY OF OTHER DISEASES OF 05/07/2018 MARGARITA SCOTT UX RESEARCH ASSOCIATE Ot Z87.442 PERSONAL HISTORY OF URINARY CALCULI 05/07/2018 CASSIE RUSH MD Ot F17.210 NICOTINE DEPENDENCE, CIGARETTES, UNCOMPL 05/07/2018 CASSIE RUSH MD Ot F41.9 ANXIETY DISORDER, UNSPECIFIED 05/07/2018 CASSIE RUSH MD Ot I25.2 OLD MYOCARDIAL INFARCTION 05/07/2018 CASSIE RUSH MD Ot M79.605 PAIN IN LEFT LEG 05/07/2018 CASSIE RUSH MD Ot S80.12XA CONTUSION OF LEFT LOWER LEG, INITIAL ENC 05/07/2018 CASSIE RUSH MD Ot S90.32XA CONTUSION OF LEFT FOOT, INITIAL ENCOUNTE 05/07/2018 CASSIE RUSH MD Ot X58.XXXA EXPOSURE TO OTHER SPECIFIED FACTORS, INI 05/07/2018 CASSIE RUSH MD Ot Z87.19 PERSONAL HISTORY OF OTHER DISEASES OF 05/07/2018 CASSIE RUSH MD Ot Z87.442 PERSONAL HISTORY OF URINARY CALCULI 05/10/2018 CASSIE RUSH MD Ot F17.210 NICOTINE DEPENDENCE, CIGARETTES, UNCOMPL 05/10/2018 CASSIE RUSH MD Ot F41.9 ANXIETY DISORDER, UNSPECIFIED 05/10/2018 CASSIE RUSH MD Ot I25.2 OLD MYOCARDIAL INFARCTION 05/10/2018 CASSIE RUSH MD Ot M79.605 PAIN IN LEFT LEG 05/10/2018 CASSIE RUSH MD Ot S80.12XA CONTUSION OF LEFT LOWER LEG, INITIAL ENC 05/10/2018 CASSIE RUSH MD Ot S90.32XA CONTUSION OF LEFT FOOT, INITIAL ENCOUNTE 05/10/2018 CASSIE RUSH MD Ot X58.XXXA EXPOSURE TO OTHER SPECIFIED FACTORS, INI 05/10/2018 ADRI ANDREWS, CASSIE Wilson Ot Z87.19 PERSONAL HISTORY OF OTHER DISEASES OF TH 05/10/2018 ADRI ANDREWS, CASSIE Wilson Ot Z87.442 PERSONAL HISTORY OF URINARY CALCULI 05/31/2018 DILLAN SHAFFERP Ot F12.90 CANNABIS USE, UNSPECIFIED, UNCOMPLICATED 05/31/2018 DEENADILLAN Stout REACTOR FUELING SUPERVISOR Ot I25.2 OLD MYOCARDIAL INFARCTION 05/31/2018 DILLAN SHAFFER REACTOR FUELING SUPERVISOR Ot 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 05/31/2018 DEENA, DILLAN REACTOR FUELING SUPERVISOR Ot K58.9 IRRITABLE BOWEL SYNDROME WITHOUT DIARRHE 05/31/2018 DEENADILLAN Stout REACTOR FUELING SUPERVISOR Ot L02.414 CUTANEOUS ABSCESS OF LEFT UPPER LIMB 05/31/2018 DILLAN SHAFFER REACTOR FUELING SUPERVISOR Ot L03.114 CELLULITIS OF LEFT UPPER LIMB 05/31/2018 DILLAN SHAFFER REACTOR FUELING SUPERVISOR Ot M25.522 PAIN IN LEFT ELBOW 05/31/2018 DILLAN SHAFFER REACTOR FUELING SUPERVISOR Ot Z23 ENCOUNTER FOR IMMUNIZATION 05/31/2018 DILLAN SHAFFERP Ot Z87.442 PERSONAL HISTORY OF URINARY CALCULI 08/26/2018 MARGARITA SCOTT APRN Ot F41.9 ANXIETY DISORDER, UNSPECIFIED 08/26/2018 MARGARITA SCOTT APRN Ot I25.2 OLD MYOCARDIAL INFARCTION 08/26/2018 MARGARITA SCOTT APRN Ot L98.9 DISORDER OF THE SKIN AND SUBCUTANEOUS TI 08/26/2018 MARGARITA SCOTT APRN Ot R11.0 NAUSEA 08/26/2018 MARGARITA SCOTT APRN Ot S81.802A UNSPECIFIED OPEN WOUND, LEFT LOWER LEG, 08/26/2018 MARGARITA SCOTT UX RESEARCH ASSOCIATE Ot X58.XXXA EXPOSURE TO OTHER SPECIFIED FACTORS, INI 08/26/2018 MARGARITA SCOTT APRN Ot Z77.22 CNTCT W AND EXPSR TO ENVIRON TOBACCO SMO 08/26/2018 MARGARITA SCOTT APRN Ot Z87.19 PERSONAL HISTORY OF OTHER DISEASES OF 08/26/2018 MARGARITA SCOTT APRN Ot Z87.442 PERSONAL HISTORY OF URINARY CALCULI [...] 15:30 Bacteria identification in wound by culture [id number] NRG FREE TEXT EXTERNAL SENSITIVITY REPORTED 01/18/18 16:00 NRG QUANTITY OF GROWTH Abundant Growth NRG MRSA AGAR MRSA isolated (Screening test for MRSA is positive) NRG CALL POSITIVES (F1 HELP) PRINTED TO ER PRINTER 3 01/18/18 16:00/ST NRG Bacterial susceptibility panel - 05/28/18 15:30 Oxacillin susceptibility test by minimum inhibitory [...] by light microscopy MOD NAOMI URATES NRG Complete blood count (CBC) with automated white blood cell (WBC) differential - 05/07/18 16:03 Blood leukocytes automated count (number/volume) 7.5 10*3/uL 4.3-11.0 Blood erythrocytes automated count (number/volume) 4.07 10*6/uL 4.35-5.85 Venous blood hemoglobin measurement (mass/volume) 13.0 g/dL 13.3-17.7 Blood hematocrit (volume fraction) 38 % 40-54 Automated erythrocyte mean corpuscular volume 92 [foz_us] 80-99 Automated erythrocyte mean corpuscular hemoglobin (mass per erythrocyte) 32 pg 25-34 Automated erythrocyte mean corpuscular hemoglobin concentration measurement ( mass/volume) 35 g/dL 32-36 Automated erythrocyte distribution width ratio 13.0 % 10.0-14.5 Automated blood platelet count (count/volume) 251 10*3/uL 130-400 Automated blood platelet mean volume measurement 9.3 [foz_us] 7.4-10.4 Automated blood neutrophils/100 leukocytes 57 % 42-75 Automated blood lymphocytes/100 leukocytes 34 % 12-44 Blood monocytes/100 leukocytes 5 % 0-12 Automated blood eosinophils/100 leukocytes 4 % 0-10 Automated blood basophils/100 leukocytes 1 % 0-10 Blood neutrophils automated count (number/volume) 4.3 10*3 1.8-7.8 Blood lymphocytes automated count (number/volume) 2.5 10*3 1.0-4.0 Blood monocytes automated count (number/volume) 0.3 10*3 0.0-1.0 Automated eosinophil count 0.3 10*3/uL 0.0-0.3 Automated blood basophil count (count/volume) 0.1 10*3/uL 0.0-0.1 Comprehensive metabolic panel - 05/07/18 16:03 Serum or plasma sodium measurement (moles/volume) 139 mmol/L 135-145 Serum or plasma potassium measurement (moles/volume) 3.4 mmol/L 3.6-5.0 Serum or plasma chloride measurement (moles/volume) 107 mmol/L 98-107 Carbon dioxide 20 mmol/L 21-32 Serum or plasma anion gap determination (moles/volume) 12 mmol/L 5-14 Serum or plasma urea nitrogen measurement (mass/volume) 11 mg/dL 7-18 Serum or plasma creatinine measurement (mass/volume) 0.92 mg/dL 0.60-1.30 Serum or plasma urea nitrogen/creatinine mass ratio 12 NRG Serum or plasma creatinine measurement with calculation of estimated glomerular filtration rate > NRG Serum or plasma glucose measurement (mass/volume) 169 mg/dL 70-105 Serum or plasma calcium measurement (mass/volume) 9.0 mg/dL 8.5-10.1 Serum or plasma total bilirubin measurement (mass/volume) 0.4 mg/dL 0.1-1.0 Serum or plasma alkaline phosphatase measurement (enzymatic activity/volume) 83 U/L 40-136 Serum or plasma aspartate aminotransferase measurement (enzymatic activity/ volume) 17 U/L 5-34 Serum or plasma alanine aminotransferase measurement (enzymatic activity/volume ) 21 U/L 0-55 Serum or plasma protein measurement (mass/volume) 6.7 g/dL 6.4-8.2 Serum or plasma albumin measurement (mass/volume) 4.1 g/dL 3.2-4.5 CALCIUM CORRECTED 8.9 mg/dL 8.5-10.1 Serum or plasma ethanol measurement (mass/volume) - 05/07/18 16:03 Serum or plasma ethanol measurement (mass/volume) < mg/dL <10 Blood manual differential performed detection - 05/07/18 16:03 Blood monocytes/100 leukocytes 9 % NRG Manual blood segmented neutrophils/100 leukocytes 45 % NRG Blood band neutrophils/100 leukocytes 3 % NRG Manual blood lymphocytes/100 leukocytes 37 % NRG Manual eosinophils/100 leukocytes in nose 6 % NRG Blood polychromasia detection by light microscopy SLIGHT NRG Blood anisocytosis detection by light microscopy SLIGHT NRG Blood macrocytes detection by light microscopy SLIGHT NRG Urine drug screening test - 05/07/18 16:47 Urine phencyclidine detection by screening method NEGATIVE NEGATIVE Urine benzodiazepines detection by screening method NEGATIVE NEGATIVE Urine cocaine detection NEGATIVE NEGATIVE Urine amphetamines detection by screening method POSITIVE NEGATIVE Urine methamphetamine detection by screening method POSITIVE NEGATIVE Urine cannabinoids detection by screening method NEGATIVE NEGATIVE Urine opiates detection by screening method POSITIVE NEGATIVE Urine barbiturates detection NEGATIVE NEGATIVE Screening urine tricyclic antidepressants detection NEGATIVE NEGATIVE Urine methadone detection by screening method NEGATIVE NEGATIVE Urine oxycodone detection NEGATIVE NEGATIVE Urine propoxyphene detection NEGATIVE NEGATIVE Encounters ACCT No. Visit Date/Time Discharge Status Pt. Type Provider Facility Loc./Unit Complaint [id number] 05/07/2018 15:26:00 05/07/2018 17:50:00 DIS Emergency CASSIE RUSH MD [facility] ER LEFT LOWER EXTRIMITY [id number] 04/28/2018 19:16:00 04/28/2018 21:35:00 DIS Emergency MARGARITA SCOTT APRN [facility] ER BITE ON L LEG,POSS INFECTED [id number] 01/17/2018 14:31:00 01/17/2018 15:40:00 DIS Emergency DILLAN SHAFFER [facility] ER L ELBOW REDNESS [id number] 12/07/2017 12:50:00 12/07/2017 16:38:00 DIS Emergency ADRI ANDREWS, CASSIE Wilson [facility] ER CP,SOB,LEFT SIDE OF FACE NUMB,VIDES,HAIR LOSS [id number] 04/08/2015 16:23:00 04/08/2015 17:03:00 DIS Emergency MARGARITA SCOTT APRN [facility] ER L INDEX FINGER INJ/LAC [id number] 09/05/2013 12:36:00 09/05/2013 23:59:59 CLS Outpatient [id number] 06/07/2013 14:32:00 06/07/2013 17:18:00 DIS Emergency CASSIE RUSH MD [facility] ER ABD PAIN [id number] 04/08/2015 16:24:00 Document Registration [id number] 03/24/2011 14:25:00 Document Registration [id number] 09/16/2010 13:16:00 Document Registration [id number] 08/07/2010 10:40:00 Document Registration [id number] 05/20/2010 08:51:00 Document Registration [id number] 09/02/2018 13:30:00 09/02/2018 23:59:59 CLS Outpatient [facility]
== END 2018-11-21 00:08 | disposition left against medical advice (07) ==
LOC: EDUNIT# 22:57 → ER 22:58
DX: R22.0 Localized swelling, mass and lump, head (principal); K08.89 Other specified disorders of teeth and supporting structures

== ENCOUNTER → 2022-07-22 | Outpatient (CLI) | payer OTHER ==
--- NOTE | 2022-07-22 14:57 | Diagnostic Imaging Report ---
INDICATION: Remote injury. Questionable deformity. EXAMINATION: Right shoulder, 3 views, on 07/22/2022. FINDINGS: There is subchondral sclerosis and lucency along the lateral superior humeral head, consistent with degenerative disease. No acute fractures or dislocations are appreciated. Mild subacromial spurring is noted. The visualized lung is clear. IMPRESSION: Chronic findings with no superimposed acute process. Dictated by: Dictated on workstation # [id number]
== END ==
LOC: ORTHO 14:15 → MERGE 15:32
PROVIDERS: ATTEND Orthopaedic Surgery
DX: M75.101 Unspecified rotator cuff tear or rupture of right shoulder, not specified as traumatic (principal); K50.90 Crohn's disease, unspecified, without complications; I21.9 Acute myocardial infarction, unspecified
CPT/HCPCS: 73030; 99203

== ENCOUNTER → 2022-08-14 | Outpatient (CLI) | payer OTHER ==
--- NOTE | 2022-08-14 16:06 | Diagnostic Imaging Report ---
PROCEDURE: MRI right joint upper extremity without contrast. TECHNIQUE: Multiplanar, multisequence non contrast-enhanced MRI of the right upper extremity was accomplished. INDICATION: Right shoulder pain, rotator cuff tear. COMPARISON: Radiographs from 07/22/2022 FINDINGS: No acute fracture is seen in the right shoulder. Alignment appears normal. Subcortical cystlike changes are noted in the lateral humeral head. The supraspinatus tendon demonstrates mild tendinosis but no high-grade partial-thickness or full-thickness tears are seen. The infraspinatus and teres minor tendons appear to be intact. The subscapularis tendon demonstrates a small low-grade partial-thickness intrasubstance tear. No muscular atrophy is seen. The long head of the biceps tendon appears normal in course and signal. The right glenoid labrum is suboptimally evaluated in the absence of intra-articular contrast. No paralabral cyst is seen. There is moderate fluid in the subacromial subdeltoid bursa. The acromion has a curved undersurface. The coracoclavicular and coracoacromial ligaments are intact. IMPRESSION: 1. Mild tendinosis and small low-grade partial thickness tear in the right rotator cuff but no high-grade partial-thickness or full-thickness tears are seen. 2. Moderate subacromial subdeltoid bursitis. Dictated by: Dictated on workstation # [id number]
== END ==
LOC: RAD 14:20
PROVIDERS: ATTEND Orthopaedic Surgery
DX: M75.101 Unspecified rotator cuff tear or rupture of right shoulder, not specified as traumatic (principal); M75.51 Bursitis of right shoulder; M25.811 Other specified joint disorders, right shoulder
CPT/HCPCS: 73221

== ENCOUNTER → 2022-08-19 | Outpatient (CLI) | payer OTHER | LOC: ORTHO 09:03 | PROVIDERS: ATTEND Orthopaedic Surgery | DX: M75.101 Unspecified rotator cuff tear or rupture of right shoulder, not specified as traumatic (principal) | CPT/HCPCS: 20610 ==